=== PATIENT | male | born 1965 ===

== ENCOUNTER 2016-12-24 14:55 | Emergency (ER) | payer MEDICARE, BC ==
[2016-12-24 14:57] VITALS: BMI 32.1
[2016-12-24] MEDS ORDERED: Sodium Chloride 0.9% 1,000 ML IV STA ×4 (15:16→17:26)
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
[2016-12-24 15:31] LABS: BASO # 0.03 K/mm3 (0.0-2.0); BASO % 0.4 % (0.0-3.0); EOS # 0.2 (0.0-0.7); EOS % 1.9 % (1.5-5.0); GRAN # 5.22 (1.4-6.5); GRAN % 61.6 % (50.0-68.0); HEMOGLOBIN 15.1 gm/dL (14.0-18.0); LYMPH # 2.4 (1.2-3.4); LYMPH % 28.1 % (22.0-35.0); MEAN CELL VOLUME 84.9 fL (80.0-105.0); MEAN CORPUSCULAR HEMOGLOBIN 30.8 pg (25.0-35.0); MEAN CORPUSCULAR HGB CONC 36.2 g/dl (31.0-37.0); MEAN PLATELET VOLUME 9.8 fl (7.0-11.0); MONO # 0.7 (0.1-0.6); PLATELET COUNT 267 10^3/uL (120.0-450.0); RBC 4.91 10^6/uL (3.5-6.1); RED CELL DISTRIBUTION WIDTH 12.2 % (11.5-14.5); WHITE BLOOD COUNT 8.5 10^3/ul (4.5-11.0)
[2016-12-24 15:40] LABS: ALB/GLOB RATIO 1.1 (1.1-1.8); ALBUMIN 4.9 g/dL (3.0-4.8); CALCIUM 10.4 mg/dL (8.4-10.5)
--- NOTE | 2016-12-24 16:03 | RAD ---
HISTORY: Dizziness COMPARISON: 06/24/2016. FINDINGS: LUNGS: The lungs are well inflated and clear. PLEURA: No significant pleural effusion identified, no pneumothorax apparent. CARDIOVASCULAR: Normal. OSSEOUS STRUCTURES: No significant abnormalities. VISUALIZED UPPER ABDOMEN: Normal. OTHER FINDINGS: None. IMPRESSION: No active pulmonary disease.
[2016-12-24 17:15] LABS: VENOUS BLOOD GAS BASE EXCESS 1.1 mmol/L (0.0-2.0); VENOUS BLOOD GAS PO2 42 mm/Hg (30-55); VENOUS BLOOD PH 7.32 (7.32-7.43)
[2016-12-24 17:22] LABS: BLOOD UREA NITROGEN 16 mg/dL (7-21); CALCIUM 8.8 mg/dL (8.4-10.5); GFR AFRICAN-AMERICAN > 60; GFR NON-AFRICAN AMERICAN 58
[2016-12-24 18:55] VITALS: BP 126/76; PULSE 81; RESP 18; O2SAT 98
[2016-12-24 18:59] LABS: VENOUS BLOOD GAS BASE EXCESS -1.5 mmol/L (0.0-2.0); VENOUS BLOOD GAS PO2 54 mm/Hg (30-55); VENOUS BLOOD PH 7.33 (7.32-7.43)
[2016-12-24 19:16] LABS: BARBITURATES, UR NEGATIVE (NEGATIVE); BENZODIAZEPINES, UR NEGATIVE (NEGATIVE); OPIATES, UR NEGATIVE (NEGATIVE); PHENCYCLIDINE, UR NEGATIVE (NEGATIVE)
--- NOTE | 2016-12-25 16:33 | CARD ---
APPROVED REPORT EKG Measurement Heart [id number] <Conclusion> Sinus tachycardia Otherwise normal ECG
== END 2016-12-24 19:27 | disposition home or self-care (01) ==
LOC: ED 14:55
DX: E86.0 Dehydration (principal); E11.9 Type 2 diabetes mellitus without complications; I10 Essential (primary) hypertension
CPT/HCPCS: 71010; 80053; 82803; 82948; 85025; 93005; 96360; 99285; G0480; J7040

== ENCOUNTER 2017-09-23 06:15 | Day surgery (SDC) | payer MEDICARE, BC ==
[2017-09-15 08:58] VITALS: BMI 27.4
--- NOTE | 2017-09-23 04:12 | HP ---
DATE OF EXAM: 09/22/2017 REASON FOR ADMISSION: Left heart cath, possible angioplasty, preop evaluation for right hip surgery, abnormal stress test. BRIEF CLINICAL HISTORY: This is a 52-year-old male with past medical history of diabetes, hypertension, hyperlipidemia, bipolar disorder, needs right hip surgery and patient underwent preop clearance. Stress test is abnormal, so patient is scheduled for elective cardiac cath and possible angioplasty. PAST MEDICAL HISTORY: Significant for diabetes, hypertension, hyperlipidemia, obesity, arthritis of right hip requiring surgical intervention. SOCIAL HISTORY: Denies any history of alcohol abuse. CURRENT MEDICATIONS: Patient is taking Desyrel 150 mg p.o. daily, which is trazodone, Glucophage 500 twice a day, Risperdal 2 mg p.o. at bedtime, Lamictal 200 mg p.o. at bedtime, Lexapro 20 mg daily, Depakote ER 500 mg p.o. at bedtime, acetaminophen 3 tablets p.r.n. ALLERGIES: ALLERGY TO DIPHENHYDRAMINE AND IBUPROFEN. RECENT CARDIAC WORKUP: Patient had a stress test Lexiscan with preop evaluation dated 09/10/2017 that shows normal valve motion with ejection fraction 55%, probably abnormal myocardial perfusion study, partially reversible apical defect suggestive of ischemia. In comparison to the last study dated 09/08/2013, the changes appeared new, suspicious for ischemia. REVIEW OF SYSTEMS: As per HPI. PHYSICAL EXAMINATION: GENERAL: Height of the patient 5 feet 11 inches, weight of the patient 197 pounds, body mass index 27.5 kg/m2. VITAL SIGNS: Temperature is afebrile, heart rate 80, blood pressure 130/80. HEENT: PERRLA. Extraocular muscles intact. NECK: Supple. No carotid bruit or thyromegaly. CHEST: Clear to auscultation. HEART: S1, S2 regular. ABDOMEN: Soft. EXTREMITIES: Clubbing and cyanosis negative. LABORATORY DATA: Blood workup pending. IMPRESSION: Obesity, diabetes, hypertension, hyperlipidemia, arthritis of the right hip, bipolar disorder, abnormal stress test, preoperative evaluation for hip surgery. RECOMMENDATION: We will load with aspirin and Plavix. Follow up the blood workup; if the blood is in the normal limit, we will proceed for cardiac catheterization. Risks, benefits, and alternatives were discussed with the patient. The patient agreed, we will proceed for cardiac catheterization. Further recommendations after cardiac catheterization. Thank you Dr. Smith/Dr. Almanzar for providing us the opportunity in taking care of the patient, Pranav Goel. Thomas Leyva MD
[2017-09-23] MEDS ORDERED: Lidocaine 2% Inj (20ml) ONE (06:51)
[2017-09-23] MEDS ORDERED: Midazolam 2 MG/2 ML VIAL ONE ×2 (06:52→07:19)
[2017-09-23] MEDS ORDERED: Phenylephrine 10 mg/ml Inj ONE (06:52)
[2017-09-23] MEDS ORDERED: Iohexol 350mgl/ml 50 ML ONE (06:53)
[2017-09-23] MEDS ORDERED: Iodixanol 320 MG/ML 100 ML BOTTLE IV ONE (06:53)
[2017-09-23] MEDS ORDERED: Nitroglycerin 50mg in D5W 50 MG/250 ML BOTTLE IV ONE (06:53)
[2017-09-23] MEDS ORDERED: Iodixanol 320 MG/ML 200 ML BOTTLE IV ONE (06:53)
[2017-09-23] MEDS ORDERED: Verapamil 2 ML ONE (06:54)
[2017-09-23 07:10] LABS: BASO # 0.02 K/mm3 (0.0-2.0); BASO % 0.4 % (0.0-3.0); EOS # 0.3 (0.0-0.7); EOS % 5.6 % (1.5-5.0); GRAN # 2.36 (1.4-6.5); GRAN % 53.1 % (50.0-68.0); HEMOGLOBIN 12.7 g/dL (14.0-18.0); LYMPH # 1.4 (1.2-3.4); MEAN CELL VOLUME 86.7 fl (80.0-105.0); MEAN CORPUSCULAR HEMOGLOBIN 29.7 pg (25.0-35.0); MEAN CORPUSCULAR HGB CONC 34.2 g/dl (31.0-37.0); MEAN PLATELET VOLUME 9.6 fl (7.0-11.0); MONO # 0.4 (0.1-0.6); MONO % 9.9 % (1.0-6.0); RBC 4.28 10^6/uL (3.5-6.1); RED CELL DISTRIBUTION WIDTH 12.5 % (11.5-14.5); WHITE BLOOD COUNT 4.5 10^3/ul (4.5-11.0)
[2017-09-23 07:17] LABS: BLOOD UREA NITROGEN 24 mg/dL (7-21); CALCIUM 9.4 mg/dL (8.4-10.5); GFR AFRICAN-AMERICAN > 60; GFR NON-AFRICAN AMERICAN 53; HDL CHOLESTEROL 67 mg/dL (29-60)
[2017-09-23 07:19] LABS: INR 0.94 (0.93-1.08); PARTIAL THROMBOPLASTIN TIME 26.1 Seconds (25.1-36.5); PROTHROMBIN TIME 10.8 SECONDS (9.4-12.5)
[2017-09-23 07:27] LABS: LDL CHOLESTEROL 44 mg/dL (0-129)
[2017-09-23 08:15] VITALS: RESP 18; TEMP 98.4
[2017-09-23] MEDS ORDERED: Bacitracin 500 Units/gm Oint Foilpak UD TOP ONE (08:33)
[2017-09-23] MEDS ORDERED: Sodium Chloride 0.9% 1,000 ML IV SCH (08:45)
[2017-09-23] MEDS ORDERED: Bacitracin 500 Units/gm Oint Foilpak UD ONE (11:06)
--- NOTE | 2017-09-23 11:21 | CPOSTOP ---
DATE: 09/23/2017 DICTATING PHYSICIAN: Thomas Leyva MD. 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 TYPE OF ANESTHESIA: Moderate conscious sedation. Total dose given 2 mg of Versed, 100 of fentanyl periodically. Started 1 mg of Versed, 50 of fentanyl. PRE-PROCEDURE DIAGNOSES: Abnormal stress test, preoperative for hip surgery. PROCEDURE PERFORMED: Left heart catheterization. FINDINGS: Nonobstructive coronary artery disease, limited only to distal LAD diffuse disease, 55%. FINAL DIAGNOSES: Single-vessel disease, distal diffuse; nonobstructive coronary artery disease. POST PROCEDURE CONDITION: Stable. VASCULAR ACCESS SITE: Left radial. CLOSURE DEVICE: TR Band. TOTAL RADIATION DOSE: 6388.4 milligray unit. TOTAL FLUORO TIME: 3.3 minutes. Thomas Leyva MD
[2017-09-23] MEDS ORDERED: Insulin Reg-LOW-Coverage SC SCH (11:30)
[2017-09-23 11:33] VITALS: BP 118/74; PULSE 82; O2SAT 95
--- NOTE | 2017-09-23 14:34 | CARD ---
APPROVED REPORT EKG Measurement Heart [id number] <Conclusion> Normal sinus rhythm Normal ECG
--- NOTE | 2017-09-23 17:05 | CARD ---
APPROVED REPORT Procedure(s) performed: Complete Heart Catheterization HISTORY The patient is a 52 year-old Male with a history of : most recent EF: 55%. (EF Method: RADIONUCLIDE), diabetes mellitus with oral treatment , tobacco history() : The patient is a current smoker , previous PCI (The PCI date was ), hypertension , dyslipidemia , pre - op for hip surgery abnormal stress test, apical and inferior Ischemia.. INDICATION The indication(s) include : positive stress test. CASE TECHNIQUE The patient was brought electively to the Cardiac Catheterization Laboratory in a fasting state and was prepped and draped in a sterile manner. The left wrist was infiltrated with 2% Lidocaine subcutaneous anesthesia. A 6FR GLIDESHEATH ACCESS KIT sheath was inserted into the left radial artery without difficulty. Coronary angiography was performed using coronary diagnostic catheters. The left coronary system was accessed and visualized with a Diagnostic,6F JL4 CATH DXT 100 CM catheter. The right coronary system was accessed and visualized with a Diagnostic ,6F JR 4 CATH DXT 100 CM catheter. The left ventricle was accessed and visualized with a 6F JR 4 CATH DXT 100 CM catheter. Left ventricular/Aortic Valve gradient assessed on pullback. Left ventriculogram was performed in ESTRADA projection. Closure device was deployed with a Fr TR Band (Large) without any complications. The patient tolerated the procedure well and there were no complications associated with the procedure. Vessel Analysis The patient's coronary anatomy is right dominant. The left main coronary artery is a large size vessel with intimal irregularities and without significant stenosis. The left main bifurcates to the left anterior descending and circumflex. The left anterior descending artery is a medium size vessel with diffuse calcification noted throughout this vessel and without significant stenosis. There is a 55% stenosis in the very distal segment. near apex and is diffusely diseased, but no focal flow limiting stenosis. The first diagonal branch is a medium size vessel with diffuse calcification noted throughout this vessel and without significant stenosis. The second diagonal branch is a small size vessel with diffuse calcification noted throughout this vessel and without significant stenosis. The third diagonal branch is a small size vessel with diffuse calcification noted throughout this vessel and without significant stenosis. The circumflex artery is a medium size vessel with diffuse calcification noted throughout this vessel and without significant stenosis. The first obtuse marginal branch is a medium size vessel with intimal irregularities and without significant stenosis. The second obtuse marginal branch is a medium size vessel with intimal irregularities and without significant stenosis. The right coronary artery is a large size vessel with diffuse calcification noted throughout this vessel and without significant stenosis. The right posterior descending artery is a large size vessel with intimal irregularities and without significant stenosis. The right posterolateral branch is a medium size vessel with intimal irregularities and without significant stenosis. Left Ventricle The left ventricle is normal in size with normal contractility. There was no cardiomyopathy. The left ventricular ejection fraction is estimated to be 55-60%. The left ventricular end diastolic pressure is 6-8 mmHg. There was no gradient across the aortic valve upon pullback. Conclusion Non Obstructive CAD limited to very distal LAD 55% diffusely diseased, non flow limiting non focal stenosis. Preserved Lv Fx, EF-55-60%, EDP-6-8 mm of Hg. Recommendations Aggressive Medical TherapyCardiac Risk Reduction Program Weight Loss Reduction Program Pt. is cleared to go for hip Surgery, from cardilogy point of view. CC; DRs. Smith/ Jenelle.
== END 2017-09-23 12:02 | disposition home or self-care (01) ==
LOC: CATH 06:15
PROVIDERS: ATTEND Internal Medicine Cardiovascular Disease
DX: I25.10 Atherosclerotic heart disease of native coronary artery without angina pectoris (principal); E11.9 Type 2 diabetes mellitus without complications; I10 Essential (primary) hypertension; E78.5 Hyperlipidemia, unspecified; F31.9 Bipolar disorder, unspecified; M16.11 Unilateral primary osteoarthritis, right hip; E66.9 Obesity, unspecified; Z68.27 Body mass index [BMI] 27.0-27.9, adult; R94.39 Abnormal result of other cardiovascular function study; F17.200 Nicotine dependence, unspecified, uncomplicated; Z01.818 Encounter for other preprocedural examination; Z98.61 Coronary angioplasty status
CPT/HCPCS: 36415; 80048; 80061; 85025; 85610; 85730; 86850; 86900; 93005; 93458; 99152; C1769; J1644 ×2; J2250; J3010; J7040; Q9966; Q9967

== ENCOUNTER 2018-03-06 14:21 | Emergency (ER) | payer MEDICARE, BC ==
[2018-03-06 14:21] VITALS: BMI 27.4
[2018-03-06 14:37] VITALS: TEMP 98.5
--- NOTE | 2018-03-06 15:08 | ED PDOC ---
Arrival/HPI - General Chief Complaint: Dizziness/Lightheaded Time Seen by Provider: 03/06/18 14:22 Historian: Patient - History of Present Illness Narrative History of Present Illness (Text): 03/06/18 14:59 53yo male with pmhx of NIDDM who present to ED for evaluation of one year history of lightheadedness. States he has been seen by a Neurologist, Cardiology Nurse, and ENT and all test was negative. States he had a syncopal epis ode 2months ago, but didn't see a doctor. He states he usually gets the lightheadedness when he stands up in the morning. States he finally decided that enough is enough and decided to come to ED for evaluation. States he did not get lightheaded today. Denies chest pain, SOB, diaphoresis, focal weakness, headache, visual changes, recent URI, tinnitus. Past Medical History - Provider Review Nursing Documentation Reviewed: Yes - Infectious Disease Hx of Infectious Diseases: None - Tetanus Immunization Tetanus Immunization: Unknown - Cardiac Hx Cardiac Disorders: No - Pulmonary Hx Respiratory Disorders: No - Neurological Hx Neurological Disorder: No - HEENT Hx HEENT Disorder: No - Renal Hx Renal Disorder: Yes Hx Kidney Stones: Yes - Endocrine/Metabolic Hx Endocrine Disorders: Yes Hx Diabetes Mellitus Type 2: Yes - Hematological/Oncological Hx Blood Disorders: No - Integumentary Hx Dermatological Disorder: No - Musculoskeletal/Rheumatological Hx Musculoskeletal Disorders: Yes Hx Arthritis: Yes (HIP) - Gastrointestinal Hx Gastrointestinal Disorders: Yes Hx Diverticulitis: Yes Hx Gall Bladder Disease: Yes - Genitourinary/Gynecological Hx Genitourinary Disorders: No - Psychiatric Hx Psychophysiologic Disorder: Yes Hx Anxiety: Yes Hx Bipolar Disorder: Yes Hx Depression: Yes Hx Schizophrenia: Yes Hx Substance Use: Yes (COCAINE) - Surgical History Other/Comment: KIDNEY STONES REMOVED - Anesthesia Hx Anesthesia Reactions: No Hx Malignant Hyperthermia: No - Suicidal Assessment Feels Threatened In Home Enviroment: No Family/Social History - Physician Review Nursing Documentation Reviewed: Yes Family/Social History: Unknown Family HX Smoking Status: Heavy Smoker > 10 Cigarettes Daily Hx Alcohol Use: Yes Frequency of alcohol use: Daily Hx Substance Use: Yes (COCAINE) Substance used: cocaine Hx Substance Use Treatment: No Allergies/Home Meds Allergies/Adverse Reactions: Allergies diphenhydramine [From Benadryl] Allergy (Severe, Verified 03/06/18 14:23) SWELLING ibuprofen Allergy (Severe, Verified 03/06/18 14:23) SWELLING Home Medications: Home Meds Medication Instructions Recorded Confirmed Escitalopram [Lexapro] 20 mg PO HS 09/07/12 03/06/18 Lamotrigine [Lamictal] 200 mg PO HS 09/07/12 03/06/18 Risperidone [Risperdal] 2 mg PO HS 06/24/16 03/06/18 traZODone [Desyrel] 150 mg PO HS 06/24/16 03/06/18 Acetaminophen [Tylenol Extra 3 tab PO PRN PRN 07/22/17 03/06/18 Strength] Divalproex [Depakote ER] 500 mg PO HS 07/22/17 03/06/18 metFORMIN [glucOPHAGE] 500 mg PO BID 09/15/17 03/06/18 Review of Systems - Physician Review All systems were reviewed & negative as marked: Yes - Review of Systems Constitutional: Normal Eyes: Normal ENT: Normal Respiratory: Normal Cardiovascular: Normal Gastrointestinal: Normal Genitourinary Male: Normal Musculoskeletal: Normal Skin: Normal Neurological: Dizziness. absent: Headache, Focal Weakness, Gait Changes, Speech Changes, Facial Droop Endocrine: Normal Hemo/Lymphatic: Normal Psychiatric: Normal Physical Exam Vital Signs Reviewed: Yes Vital Signs Temp Pulse Resp BP Pulse Ox 03/06/18 14:24 98.5 F 81 16 105/73 96 Temperature: Afebrile Blood Pressure: Normal Pulse: Regular Respiratory Rate: Normal Appearance: Positive for: Well-Appearing, Non-Toxic, Comfortable Pain Distress: None Mental Status: Positive for: Alert and Oriented X 3 - Systems Exam Head: Present: Atraumatic, Normocephalic Pupils: Present: PERRL Extroacular Muscles: Present: EOMI Conjunctiva: Present: Normal Mouth: Present: Moist Mucous Membranes Neck: Present: Normal Range of Motion Respiratory/Chest: Present: Clear to Auscultation, Good Air Exchange. No: Respiratory Distress, Accessory Muscle Use Cardiovascular: Present: Regular Rate and Rhythm, Normal S1, S2. No: Murmurs Abdomen: No: Tenderness, Distention, Peritoneal Signs Back: Present: Normal Inspection Upper Extremity: Present: Normal Inspection. No: Cyanosis, Edema Lower Extremity: Present: Normal Inspection. No: Edema Neurological: Present: GCS=15, CN II-XII Intact, Speech Normal, Motor Func Grossly Intact, Normal Sensory Function, Normal Cerebellar Funct, Norm Deep Tendon Reflexes, Gait Normal, Memory Normal, Normal 2Pt Descrimination, Other (No focal neurological deficit) Skin: Present: Warm, Dry, Normal Color. No: Rashes Psychiatric: Present: Alert, Oriented x 3, Normal Insight, Normal Concentration Medical Decision Making ED Course and Treatment: 03/06/18 16:47 53yo male who present with complaint of intermittent lightheadedness for a year. EKG NSR @ 75bpm. Normal interval. Normal rate. NSTEMI Head CT was not done, hence they is no indication for head CT. Pt is neurologically intact and have had an extensive work up for same symptoms. Labs ordered reviewed and unremarkable. His repeat FS in ED without meds given was 267. All result was DW the pt. He was neurologically intact and had a stable gait in ED. He was DC home to f/u with his PMD and Neuro. Disposition/Present on Arrival - Present on Arrival Any Indicators Present on Arrival: No History of DVT/PE: No History of Uncontrolled Diabetes: No Urinary Catheter: No History of Decub. Ulcer: No History Surgical Site Infection Following: None - Disposition Have Diagnosis and Disposition been Completed?: Yes Diagnosis: Dizziness Disposition: HOME/ ROUTINE Disposition Time: 16:50 Patient Plan: Discharge Condition: STABLE Discharge Instructions (ExitCare): Dizziness, Nonvertigo, (DC) Additional Instructions: Follow up with your Doctor/Neurologist return to ED for any new or worsening symptoms Referrals: Dani Smith MD [Family Provider] - Follow up with primary Emory Damian MD [Staff Provider] - Follow up with primary Forms: [email or web address] (Telugu)
[2018-03-06 15:28] LABS: BASO # 0.01 K/mm3 (0.0-2.0); BASO % 0.2 % (0.0-3.0); EOS # 0.1 (0.0-0.7); EOS % 1.8 % (1.5-5.0); GRAN # 3.49 (1.4-6.5); GRAN % 69.5 % (50.0-68.0); HEMOGLOBIN 12.1 g/dL (14.0-18.0); LYMPH # 1.1 (1.2-3.4); LYMPH % 21.7 % (22.0-35.0); MEAN CELL VOLUME 87.1 fl (80.0-105.0); MEAN CORPUSCULAR HEMOGLOBIN 30.1 pg (25.0-35.0); MEAN CORPUSCULAR HGB CONC 34.6 g/dl (31.0-37.0); MEAN PLATELET VOLUME 9.3 fl (7.0-11.0); MONO # 0.3 (0.1-0.6); MONO % 6.8 % (1.0-6.0); RBC 4.02 10^6/uL (3.5-6.1); RED CELL DISTRIBUTION WIDTH 12.1 % (11.5-14.5)
[2018-03-06 15:32] LABS: INR 0.97; PARTIAL THROMBOPLASTIN TIME 25.1 Seconds (25.1-36.5)
[2018-03-06 15:43] LABS: ALB/GLOB RATIO 1.2 (1.1-1.8); ALT/SGPT 20 U/L (7-56); AST/SGOT 32 U/L (17-59); BLOOD UREA NITROGEN 25 mg/dL (7-21); CALCIUM 9.3 mg/dL (8.4-10.5); GFR NON-AFRICAN AMERICAN 57
[2018-03-06] MEDS ORDERED: Insulin Regular 1 UNITS/0.01 ML ML IVP STA (15:44)
[2018-03-06] MEDS ORDERED: Sodium Chloride 0.9% 1,000 ML IV STA (15:44)
[2018-03-06 15:45] LABS: TROPONIN I < 0.01 ng/mL
[2018-03-06 15:50] LABS: FREE T4 0.89 ng/dL (0.78-2.19)
[2018-03-06 16:08] LABS: URINE BILIRUBIN NEGATIVE (NEGATIVE); URINE BLOOD NEGATIVE (NEGATIVE); URINE GLUCOSE (UA) >=1000 mg/dL (NEGATIVE); URINE LEUKOCYTE ESTERASE NEGATIVE Leu/uL (NEGATIVE); URINE PROTEIN TRACE mg/dL (<30 mg/dL); URINE UROBILINOGEN 0.2 E.U./dL (<1 E.U./dL)
[2018-03-06 16:09] LABS: URINE APPEARANCE CLEAR (CLEAR); URINE COLOR YELLOW (YELLOW)
[2018-03-06 16:39] LABS: URINE BACTERIA FEW (NEG); URINE RBC NEGATIVE /hpf (0-2)
[2018-03-06 16:45] VITALS: O2SAT 97
[2018-03-06 16:59] VITALS: BP 115/80; PULSE 72; RESP 18
--- NOTE | 2018-03-07 09:53 | CARD ---
APPROVED REPORT Date of service: 03/06/2018 EKG Measurement Heart [id number] <Conclusion> Normal sinus rhythm Normal ECG No change
== END 2018-03-06 16:58 | disposition home or self-care (01) ==
LOC: ED 14:21
DX: R42 Dizziness and giddiness (principal); E11.9 Type 2 diabetes mellitus without complications
CPT/HCPCS: 80053; 81001; 82550; 83615; 83735; 84439; 84443; 84484; 85025; 85610; 85730; 93005; 96360; 99285; J7030

== ENCOUNTER 2018-05-03 20:14 | Emergency (ER) | payer MEDICARE, BC ==
[2018-05-03 20:15] VITALS: BMI 27.4
[2018-05-03 21:36] VITALS: RESP 18; TEMP 98.1
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
[2018-05-04] MEDS ORDERED: Tmp-Smz 800 mg-160 mg DS Tab PO STA (00:05)
[2018-05-04 00:33] VITALS: BP 147/82; PULSE 68; O2SAT 99
--- NOTE | 2018-05-04 09:41 | RAD ---
Date of service: 05/03/2018 PROCEDURE: Left Foot great toe radiographs. HISTORY: toe injury COMPARISON: None. FINDINGS: BONES: There is a transverse nondisplaced fracture of the 1st proximal phalanx and a longitudinal nondisplaced fracture of the 1st distal phalanx seen only on the lateral view. JOINTS: Normal. SOFT TISSUES: Normal. OTHER FINDINGS: None. IMPRESSION: There is a transverse nondisplaced fracture of the 1st proximal phalanx and a longitudinal nondisplaced fracture of the 1st distal phalanx seen only on the lateral view.
== END 2018-05-04 00:32 | disposition home or self-care (01) ==
LOC: ED 20:14
DX: S92.912A Unspecified fracture of left toe(s), initial encounter for closed fracture (principal); X58.XXXA Exposure to other specified factors, initial encounter; Y92.9 Unspecified place or not applicable

== ENCOUNTER 2018-07-25 01:37 | Inpatient (IN) | payer MEDICARE, BC | END 2018-08-02 19:02 | disposition skilled nursing facility (03) | DRG 871 | LOC: 3RSO 08-01 18:43 → ED 01:37 → ERH 04:57 → 3RSO 15:02 | PROC: 5A09457 Assistance with Respiratory Ventilation, 24-96 Consecutive Hours, Continuous Positive Airway Pressure (ICD-10-PCS; principal; 2018-08-01 12:40) | PROC: B246ZZ4 Ultrasonography of Right and Left Heart, Transesophageal (ICD-10-PCS; 2018-08-01 12:40) | PROC: 05HY33Z Insertion of Infusion Device into Upper Vein, Percutaneous Approach (ICD-10-PCS; 2018-08-01 12:40) | PROC: B54NZZA Ultrasonography of Left Upper Extremity Veins, Guidance (ICD-10-PCS; 2018-08-01 12:40) | DX: A41.01 Sepsis due to Methicillin susceptible Staphylococcus aureus (principal); J18.9 Pneumonia, unspecified organism; F14.20 Cocaine dependence, uncomplicated; J44.0 Chronic obstructive pulmonary disease with (acute) lower respiratory infection; E11.9 Type 2 diabetes mellitus without complications; R53.1 Weakness; R55 Syncope and collapse; W19.XXXA Unspecified fall, initial encounter; M16.11 Unilateral primary osteoarthritis, right hip; M19.90 Unspecified osteoarthritis, unspecified site; F10.10 Alcohol abuse, uncomplicated; F31.9 Bipolar disorder, unspecified; F17.210 Nicotine dependence, cigarettes, uncomplicated; Z79.84 Long term (current) use of oral hypoglycemic drugs; Z79.899 Other long term (current) drug therapy; I25.10 Atherosclerotic heart disease of native coronary artery without angina pectoris; A39.4 Meningococcemia, unspecified; Z87.442 Personal history of urinary calculi; E78.5 Hyperlipidemia, unspecified; F20.9 Schizophrenia, unspecified; G47.33 Obstructive sleep apnea (adult) (pediatric); M46.90 Unspecified inflammatory spondylopathy, site unspecified; M47.9 Spondylosis, unspecified; Z79.4 Long term (current) use of insulin ==

== ENCOUNTER 2018-08-29 09:47 | Inpatient (IN) | payer MEDICARE, BC ==
[2018-08-29 09:49] VITALS: BMI 30.9
--- NOTE | 2018-08-29 10:07 | ED PDOC ---
Arrival/HPI - General Chief Complaint: GI Problem Time Seen by Provider: 08/29/18 09:49 Historian: Patient - History of Present Illness Narrative History of Present Illness (Text): 08/29/18 10:28 53 y/o male with PMH of DM, bipolar disorder, CAD presents to the ED c/o lightheadedness x 2 days. Associated nausea and brown, watery, non-bloody diarrhea 4-5 times daily starting yesterday. Lightheadedness is worse with changes in position, states when he stands up too quickly he "sees stars". Last cocaine use 5 days ago, none today. Compliant with his medication, took them today. No recent travel, changes in diet, or antibiotic use. Denies fever, chills, chest pain, SOB, headache, vomiting, palpitations, abdominal pain, urina ry symptoms, neck pain/stiffness, numbness, weakness, paresthesias, or any other associated symptoms. Past Medical History - Provider Review Nursing Documentation Reviewed: Yes - Infectious Disease Hx of Infectious Diseases: None - Tetanus Immunization Tetanus Immunization: Unknown - Cardiac Hx Pacemaker: No - Pulmonary Hx Respiratory Disorders: Yes (SMOKES 1 CIGAR/WEEK) - Neurological Hx Neurological Disorder: Yes Hx Dizziness: Yes (SYNCOPE) - HEENT Hx HEENT Disorder: No - Renal Hx Renal Disorder: Yes Hx Kidney Stones: Yes - Endocrine/Metabolic Hx Diabetes Mellitus Type 2: Yes - Hematological/Oncological Hx Cancer: No - Integumentary Hx Dermatological Disorder: Yes (TATTOOS) - Musculoskeletal/Rheumatological Hx Musculoskeletal Disorders: Yes (R SHOULDER SX) Hx Arthritis: Yes Hx Falls: Yes (2-18-19) Hx Unsteady Gait: Yes - Gastrointestinal Hx Gastrointestinal Disorders: Yes Hx Diverticulitis: Yes Hx Gall Bladder Disease: Yes - Genitourinary/Gynecological Hx Genitourinary Disorders: No - Psychiatric Hx Psychophysiologic Disorder: Yes Hx Anxiety: Yes Hx Bipolar Disorder: Yes Hx Depression: Yes Hx Schizophrenia: Yes Hx Substance Use: Yes (LAST USED 1 GM.USING FOR 35 YRS.) - Surgical History Hx Mastectomy: No - Anesthesia Hx Anesthesia Reactions: No Hx Malignant Hyperthermia: No - Suicidal Assessment Feels Threatened In Home Enviroment: No Family/Social History - Physician Review Nursing Documentation Reviewed: Yes Family/Social History: No Known Family HX Smoking Status: Current Some Days Smoker Hx Alcohol Use: Yes Hx Substance Use: Yes (LAST USED 1 GM.USING FOR 35 YRS.) Substance used: cocaine Hx Substance Use Treatment: No Allergies/Home Meds Allergies/Adverse Reactions: Allergies diphenhydramine [From Benadryl] Allergy (Severe, Verified 08/29/18 10:46) SWELLING ibuprofen Allergy (Severe, Verified 08/29/18 10:46) SWELLING Home Medications: Home Meds Medication Instructions Recorded Confirmed traZODone [Desyrel] 150 mg PO HS 06/24/16 08/29/18 Divalproex [Depakote ER] 500 mg PO HS 07/22/17 08/29/18 Lysine HCl [l-Lysine] 1,000 mg PO DAILY 08/29/18 08/29/18 Review of Systems - Review of Systems Constitutional: Fatigue. absent: Fevers Eyes: Normal. absent: Vision Changes ENT: Normal. absent: Sore Throat, Sinus Congestion Respiratory: Normal. absent: SOB, Cough Cardiovascular: Normal. absent: Chest Pain, Palpitations, Syncope Gastrointestinal: Diarrhea, Nausea. absent: Abdominal Pain, Vomiting Genitourinary Male: Normal. absent: Dysuria, Frequency Musculoskeletal: Normal. absent: Back Pain, Neck Pain Skin: Normal. absent: Rash Neurological: Other (Lightheadedness). absent: Headache, Dizziness Endocrine: Normal. absent: Diaphoresis Hemo/Lymphatic: Normal Psychiatric: Normal Physical Exam Vital Signs Reviewed: Yes Temperature: Afebrile Blood Pressure: Hypotensive Pulse: Regular Respiratory Rate: Normal Appearance: Positive for: Well-Appearing, Non-Toxic, Comfortable Pain Distress: None Mental Status: Positive for: Alert and Oriented X 3 - Systems Exam Head: Present: Atraumatic, Normocephalic Pupils: Present: PERRL Extroacular Muscles: Present: EOMI Conjunctiva: Present: Normal Mouth: Present: Moist Mucous Membranes Neck: Present: Normal Range of Motion. No: Meningeal Signs Respiratory/Chest: Present: Clear to Auscultation, Good Air Exchange. No: Respiratory Distress, Accessory Muscle Use Cardiovascular: Present: Regular Rate and Rhythm, Normal S1, S2, Peripheal Pulses Present Abdomen: Present: Tenderness (mild LLQ), Normal Bowel Sounds. No: Distention, Peritoneal Signs Back: Present: Normal Inspection. No: CVA Tenderness, Midline Tenderness, Paraspinal Tenderness Upper Extremity: Present: Normal Inspection, Normal ROM, NORMAL PULSES, Neurovascularly Intact, Capillary Refill < 2s. No: Cyanosis, Edema, Temperature Abnormalties Lower Extremity: Present: Normal Inspection, NORMAL PULSES, Normal ROM, Neurovascularly Intact, Capillary Refill < 2 s. No: Edema, Temperature Abnormalties Neurological: Present: GCS=15, CN II-XII Intact, Speech Normal, Motor Func Grossly Intact, Normal Sensory Function, Gait Normal Skin: Present: Warm, Dry, Normal Color. No: Rashes Psychiatric: Present: Alert, Oriented x 3, Normal Insight, Normal Concentration, Normal Affect, Normal Mood Medical Decision Making ED Course and Treatment: 08/29/18 10:07 Initial Plan: * CBC, CMP * Coags * Lipase * TSH * Troponin * EKG * CT Abd/Pelvis with IV contrast * Orthostatics * IVF EKG NSR at 94, no ischemic changes 11:04 Bloodwork reviewed, unremarkable UA shows no UTI Orthostatic vital signs positive LYING - 116/70 HR 86 SITTING - 96/53 HR 96 STANDING - 82/45 HR 102 11:[address] negative for acute pathology Abdominal CT significant for mild colitis 12:[address] Smith, who accepted patient for inpatient observation to [facility] with diagnoses of orthostatic hypotension, colitis, and dehydration. Requests ID and GI consult. Pt updated with changes in disposition. Resting comfortably in stretcher with stable vital signs at this time. 13:20 Pt evaluated at bedside by Dr. Smith. Requests ID consult, antibiotics, and blood cultures to be cancelled. Asks for sliding scale insulin. - Lab Interpretations Lab Results: 08/29/18 10:05 08/29/18 10:05 Lab Results 08/29/18 10:05: Free T4 1.07, TSH 3rd Generation Pending 08/29/18 10:05: Sodium 139, Potassium 4.3, Chloride 105, Carbon Dioxide 23, Anion Gap 15, BUN 20, Creatinine 1.2, Est GFR ( Amer) > 60, Est GFR (Non-Af Amer) > 60, Random Glucose 197 H, Calcium 9.5, Total Bilirubin 0.4, AST 21, ALT < 6 L, Alkaline Phosphatase 63, Lactate Dehydrogenase 393, Total Crea isidra Kinase 94, Troponin I < 0.01, Total Protein 8.5 H, Albumin 4.2, Globulin 4.3, Albumin/Globulin Ratio 1.0 L, Lipase 296 03/25/19 10:05: Urine Color Yellow, Urine Appearance Clear, Urine pH 6.0, Ur Specific [place] 1.020, Urine Protein Negative, Urine Glucose (UA) Negative, Urine Ketones Negative, Urine Blood Negative, Urine Nitrate Negative, Urine Bilirubin Negative, Urine Urobilinogen 0.2, Ur Leukocyte Esterase Trace H, Urine RBC 0 - 2, Urine WBC 2 - 5, Ur Epithelial Cells None, Urine Bacteria Small 08/29/18 10:05: PT 12.0, INR 1.06, APTT 31.7 08/29/18 10:05: WBC 6.8 D, RBC 4.09, Hgb 12.0 L, Hct 36.1 L, MCV 88.3, MCH 29.3, MCHC 33.2, RDW 13.9, Plt Count 227, MPV 9.5, Neut % (Auto) 71.4 H, Lymph % (Auto) 20.1 L, Sharp % (Auto) 5.0, Eos % (Auto) 3.4, Baso % (Auto) 0.1, Lymph # (Auto) 1.4, Sharp # (Auto) 0.3, Eos # (Auto) 0.2, Baso # (Auto) 0.01, Absolute Neuts (auto) 4.88 I have reviewed the lab results: Yes - RAD Interpretation Narrative RAD Interpretations (Text): 08/29/18 11:[address]: FINDINGS: HEMORRHAGE: No intracranial hemorrhage. BRAIN: No mass effect or edema. Cortical and cerebellar atrophy, periventricular small vessel disease. VENTRICLES: Unremarkable. No hydrocephalus. CALVARIUM: Unremarkable. PARANASAL SINUSES: Unremarkable as visualized. No significant inflammatory changes. MASTOID AIR CELLS: Unremarkable as visualized. No inflammatory changes. OTHER FINDINGS: None. IMPRESSION: No acute or significant findings related to/ accounting for the clinical presentation. Additional benign and/or incidental findings described above. No significant interval change compared to the prior examination(s). CT Abd/Pelvis with IV contrast: FINDINGS: LOWER THORAX: Improved aeration at the lung bases compared to prior CT thorax 08/02/2018. LIVER: Unremarkable. No gross lesion or ductal dilatation. GALLBLADDER AND BILE DUCTS: Status post cholecystectomy. No abnormality is seen in the gallbladder fossa. PANCREAS: Unremarkable. No gross lesion or ductal dilatation. SPLEEN: Unremarkable. ADRENALS: Unremarkable. No mass. KIDNEYS AND URETERS: Unremarkable. No hydronephrosis. No solid mass. VASCULATURE: Unremarkable. No aortic aneurysm. No atherosclerotic calcification or mural plaque present. BOWEL: Thickening of the wall of descending colon and sigmoid proximal to the suture line. Findings consistent with left daryl colitis, mild Postoperative changes including resection of portions of the sigmoid colon. No abnormalities at the anastomotic suture line. APPENDIX: A normal appendix is visualized in it's entirety. PERITONEUM: Unremarkable. No free fluid. No free air. LYMPH NODES: Unremarkable. No enlarged lymph nodes. BLADDER: Unremarkable. REPRODUCTIVE: Unremarkable. BONES: No acute fracture. Severe degenerative changes right hip. OTHER FINDINGS: None. IMPRESSION: Mild colitis, limited to the descending colon and adjacent sigmoid colon. Additional benign and/or incidental findings described above. 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 - EKG Interpretation EKG Interpretation (Text): 08/29/18 10:08 Rate 94, NSR, Normal Intervals, No STEMI or other signs of acute ischemia Interpreted by ED Physician: Yes Type: 12 lead EKG Comparison: Com.w/previous EKG Disposition/Present on Arrival - Present on Arrival Any Indicators Present on Arrival: No History of DVT/PE: No History of Uncontrolled Diabetes: No Urinary Catheter: No History Surgical Site Infection Following: None - Disposition Have Diagnosis and Disposition been Completed?: Yes Diagnosis: Orthostatic hypotension, Colitis Disposition: HOSPITALIZED Disposition Time: 12:30 Patient Plan: Discharge Condition: STABLE
[2018-08-29] MEDS ORDERED: Sodium Chloride 0.9% 1,000 ML IV STA (10:18)
[2018-08-29 10:37] LABS: BASO # 0.01 K/mm3 (0.0-2.0); BASO % 0.1 % (0.0-3.0); EOS # 0.2 (0.0-0.7); EOS % 3.4 % (1.5-5.0); LYMPH # 1.4 (1.2-3.4); LYMPH % 20.1 % (22.0-35.0); MEAN CELL VOLUME 88.3 fl (80.0-105.0); MEAN CORPUSCULAR HEMOGLOBIN 29.3 pg (25.0-35.0); MEAN CORPUSCULAR HGB CONC 33.2 g/dl (31.0-37.0); MEAN PLATELET VOLUME 9.5 fl (7.0-11.0); MONO # 0.3 (0.1-0.6); RBC 4.09 10^6/uL (3.5-6.1); RED CELL DISTRIBUTION WIDTH 13.9 % (11.5-14.5); WHITE BLOOD COUNT 6.8 10^3/uL (4.5-11.0)
[2018-08-29 10:38] LABS: URINE BILIRUBIN NEGATIVE (NEGATIVE); URINE BLOOD NEGATIVE (NEGATIVE); URINE GLUCOSE (UA) NEGATIVE (NEGATIVE); URINE LEUKOCYTE ESTERASE TRACE Leu/uL (NEGATIVE); URINE PROTEIN NEGATIVE mg/dL (<30 mg/dL); URINE UROBILINOGEN 0.2 E.U./dL (<1 E.U./dL)
[2018-08-29 10:45] LABS: INR 1.06; PARTIAL THROMBOPLASTIN TIME 31.7 Seconds (26.9-38.3); URINE APPEARANCE CLEAR (CLEAR); URINE COLOR YELLOW (YELLOW)
[2018-08-29 10:49] LABS: ALBUMIN 4.2 g/dL (3.0-4.8); AST/SGOT 21 U/L (17-59); BLOOD UREA NITROGEN 20 mg/dL (7-21); CALCIUM 9.5 mg/dL (8.4-10.5); GFR NON-AFRICAN AMERICAN > 60; LIPASE 296 U/L (23-300)
[2018-08-29 10:50] LABS: ALT/SGPT < 6 U/L (7-56)
[2018-08-29 10:54] LABS: URINE RBC 0 - 2 /hpf (0-2)
[2018-08-29 10:56] LABS: URINE BACTERIA SMALL /hpf
[2018-08-29 11:00] LABS: TROPONIN I < 0.01 ng/mL
[2018-08-29 11:06] LABS: FREE T4 1.07 ng/dL (0.78-2.19)
--- NOTE | 2018-08-29 11:45 | CT ---
Date of service: 08/29/2018 PROCEDURE: CT HEAD WITHOUT CONTRAST. HISTORY: headache COMPARISON: 06/24/2016, 04/07/2017, 07/28/2017, 07/25/2018. Serial CT scans of the head. TECHNIQUE: Axial computed tomography images were obtained through the head/brain without intravenous contrast. Supplemental Coronal and Sagittal projections created and reviewed. Radiation dose: Total exam DLP = 969.02 mGy-cm. This CT exam was performed using one or more of the following dose reduction techniques: Automated exposure control, adjustment of the mA and/or kV according to patient size, and/or use of iterative reconstruction technique. FINDINGS: HEMORRHAGE: No intracranial hemorrhage. BRAIN: No mass effect or edema. Cortical and cerebellar atrophy, periventricular small vessel disease. VENTRICLES: Unremarkable. No hydrocephalus. CALVARIUM: Unremarkable. PARANASAL SINUSES: Unremarkable as visualized. No significant inflammatory changes. MASTOID AIR CELLS: Unremarkable as visualized. No inflammatory changes. OTHER FINDINGS: None. IMPRESSION: No acute or significant findings related to/ accounting for the clinical presentation. Additional benign and/or incidental findings described above. No significant interval change compared to the prior examination(s).
--- NOTE | 2018-08-29 12:03 | CARD ---
APPROVED REPORT Date of service: 08/29/2018 EKG Measurement Heart [id number] <Conclusion> Normal sinus rhythm Normal ECG
--- NOTE | 2018-08-29 12:24 | CT ---
Date of service: 08/29/2018 PROCEDURE: CT Abdomen and Pelvis with contrast HISTORY: LLQ tender, diarrhea. r/o diverticulitis COMPARISON: None. TECHNIQUE: Intravenous contrast dose: 150 cc Omnipaque 350. Radiation dose: Total exam DLP = 1057.44 mGy-cm. This CT exam was performed using one or more of the following dose reduction techniques: Automated exposure control, adjustment of the mA and/or kV according to patient size, and/or use of iterative reconstruction technique. FINDINGS: LOWER THORAX: Improved aeration at the lung bases compared to prior CT thorax 08/02/2018. LIVER: Unremarkable. No gross lesion or ductal dilatation. GALLBLADDER AND BILE DUCTS: Status post cholecystectomy. No abnormality is seen in the gallbladder fossa. PANCREAS: Unremarkable. No gross lesion or ductal dilatation. SPLEEN: Unremarkable. ADRENALS: Unremarkable. No mass. KIDNEYS AND URETERS: Unremarkable. No hydronephrosis. No solid mass. VASCULATURE: Unremarkable. No aortic aneurysm. No atherosclerotic calcification or mural plaque present. BOWEL: Thickening of the wall of descending colon and sigmoid proximal to the suture line. Findings consistent with left daryl colitis, mild Postoperative changes including resection of portions of the sigmoid colon. No abnormalities at the anastomotic suture line. APPENDIX: A normal appendix is visualized in it's entirety. PERITONEUM: Unremarkable. No free fluid. No free air. LYMPH NODES: Unremarkable. No enlarged lymph nodes. BLADDER: Unremarkable. REPRODUCTIVE: Unremarkable. BONES: No acute fracture. Severe degenerative changes right hip. OTHER FINDINGS: None. IMPRESSION: Mild colitis, limited to the descending colon and adjacent sigmoid colon. Additional benign and/or incidental findings described above.
[2018-08-29] MEDS ORDERED: Ciprofloxacin 400mg/200ml D5W 400 MG/200 ML BAG IVPB STA (12:38)
[2018-08-29] MEDS ORDERED: metroNIDAZOLE IV 500 mg/100 ml 500 MG/100 ML BAG IVPB STA (12:38)
[2018-08-29] MEDS ORDERED: Sodium Chloride 0.9% 1,000 ML IV SCH (13:00)
[2018-08-29] MEDS ORDERED: Insulin Reg-MEDIUM-Coverage SC PRN (13:20)
--- NOTE | 2018-08-29 14:58 | CP.PCM.CON ---
<Anni Ascencio - Last Filed: 08/29/18 17:50> History of Present Illness - History of Present Illness History of Present Illness: Anni Ascencio, PGY2, GI Consult Note for Dr Escamilla: CC: lightheadedness 53 year old male with PMH DM2, bipolar disorder, cocaine abuse, presents to the ED for lightheadedness for past 3 days. Patient reports that he started feeling lightheaded on Wednesday. Then he developed watery, non-bloody diarrhea on Wednesday, reports 4 episodes. Denies abdominal pain, tenesmus, vomiting, hematochezia, melena, prior episodes. Reports mild nausea this morning, and 3 additional episodes of watery diarrhea today (last one at 11:30 AM). States that his last colonoscopy 10 years ago at [facility], was "normal." Denies fevers, chills, chest pain, SOB, headache, cough, jaundice, itchiness, weight loss, urinary symptoms, leg swelling. Of note, patient was recently admitted to [facility] on 07/25- 08/02 for MSSA bacteremia and multifocal PNA, was discharged on 2 weeks of outpatient Nafcillin. Patient reports that he did take any antibiotics at home. Denies sick contacts, raw meats or leafy vegetables consumption recently. In ED, patient found to have orthostatic vitals, CAT abd pelvis showed mild sigmoid and descending colon colitis. Given zofran, tylenol. And started on NS @ 100/hr. 12 point ROS obtained and negative, except as per HPI. PMD Dr. Smith Past medical history: Type 2 DM, 30 years history of cocaine abuse, alcohol abuse Past surgical history: shoulder repair, sigmoid colon removal due to diverticulitis (in early 1999) Home medications: Metformin, trazadone, depakote, lamictal, lysine Allergies: Motrin Family history: denies Social history: 30 year cocaine abuse. 5 year history of cigar smoker. Denies any other illicit drug use. Denies drinking alcohol. Review of Systems - Review of Systems All systems: reviewed and no additional remarkable complaints except Review of Systems: as per HPI Past Patient History - Infectious Disease Hx of Infectious Diseases: None - Tetanus Immunizations Tetanus Immunization: Unknown - Past Social History Smoking Status: Current Some Days Smoker - CARDIAC Hx Pacemaker: No - PULMONARY Hx Respiratory Disorders: Yes (SMOKES 1 CIGAR/WEEK) - NEUROLOGICAL Hx Neurological Disorder: Yes Hx Dizziness: Yes (SYNCOPE) - HEENT Hx HEENT Problems: No - RENAL Hx Chronic Kidney Disease: Yes Hx Kidney Stones: Yes - ENDOCRINE/METABOLIC Hx Diabetes Mellitus Type 2: Yes - HEMATOLOGICAL/ONCOLOGICAL Hx Cancer: No - INTEGUMENTARY Hx Dermatological Problems: Yes (TATTOOS) - MUSCULOSKELETAL/RHEUMATOLOGICAL Hx Musculoskeletal Disorders: Yes (R SHOULDER SX) Hx Arthritis: Yes Hx Falls: Yes (2-18-19) Hx Unsteady Gait: Yes - GASTROINTESTINAL Hx Gastrointestinal Disorders: Yes Hx Diverticulitis: Yes Hx Gall Bladder Disease: Yes - GENITOURINARY/GYNECOLOGICAL Hx Genitourinary Disorders: No - PSYCHIATRIC Hx Psychophysiologic Disorder: Yes Hx Anxiety: Yes Hx Bipolar Disorder: Yes Hx Depression: Yes Hx Schizophrenia: Yes Hx Substance Use: Yes (LAST USED 1 GM.USING FOR 35 YRS.) - SURGICAL HISTORY Hx Mastectomy: No - ANESTHESIA Hx Anesthesia Reactions: No Hx Malignant Hyperthermia: No Meds Allergies/Adverse Reactions: Allergies Allergy/AdvReac Type Severity Reaction Status Date / Time diphenhydramine Allergy Severe SWELLING Verified 08/29/18 10:46 [From Benadryl] ibuprofen Allergy Severe SWELLING Verified 08/29/18 10:46 - Medications Medications: Current Medications Sodium Chloride (Sodium Chloride 0.9%) 1,000 mls @ 100 mls/hr IV .Q10H [facility]A Stop: 08/29/18 20:17 Last Admin: 08/29/18 10:38 Dose: 100 mls/hr Sodium Chloride (Sodium Chloride 0.9%) 1,000 mls @ 100 mls/hr IV .Q10H [facility] Metronidazole (Flagyl) 500 mg in 100 mls @ 100 mls/hr IVPB Q8 [facility]; Protocol Ceftriaxone Sodium (Rocephin 1 Gram Ivpb) 1 gm in 100 mls @ 100 mls/hr IVPB DAILY [facility]; Protocol Insulin Human Regular (Humulin R Med) 0 units SC ACHS [facility] Physical Exam - Constitutional Appears: Non-toxic, No Acute Distress - Head Exam Head Exam: ATRAUMATIC, NORMOCEPHALIC - Eye Exam Eye Exam: EOMI, PERRL. absent: Conjunctival injection, Nystagmus, Scleral icterus Pupil Exam: NORMAL ACCOMODATION, PERRL. absent: Irregular, Mydriatic - ENT Exam ENT Exam: Mucous Membranes Moist - Neck Exam Neck exam: Positive for: Full Rom - Respiratory Exam Respiratory Exam: Clear to Auscultation Bilateral, NORMAL BREATHING PATTERN. absent: Wheezes, Respiratory Distress - Cardiovascular Exam Cardiovascular Exam: RRR, +S1, +S2. absent: Systolic Murmur - GI/Abdominal Exam GI & Abdominal Exam: Hyperactive Bowel Sounds, Soft, Tenderness (Diffusely mildly tender on deep palpation in all quadrants). absent: Distended, Firm, Guarding, Mass, Rebound, Rigid - Extremities Exam Extremities exam: Positive for: normal inspection. Negative for: calf tenderness, pedal edema - Back Exam Back exam: NORMAL INSPECTION - Neurological Exam Neurological exam: Alert, Oriented x3 - Psychiatric Exam Psychiatric exam: Normal Affect, Normal Mood - Skin Skin Exam: Dry, Normal Color, Warm Results - Vital Signs Recent Vital Signs: Last Vital Signs Temp 98 F 08/29/18 09:48 Pulse 86 08/29/18 09:48 Resp 18 08/29/18 09:48 BP 86/50 L 08/29/18 09:48 Pulse Ox 98 08/29/18 09:48 - Labs Result Diagrams: 08/29/18 10:05 08/29/18 10:05 Labs: Laboratory Results - last 24 hr 08/29/18 08/29/18 08/29/18 10:05 10:05 10:05 WBC 6.8 D RBC 4.09 Hgb 12.0 L Hct 36.1 L MCV 88.3 MCH 29.3 MCHC 33.2 RDW 13.9 Plt Count 227 MPV 9.5 Neut % (Auto) 71.4 H Lymph % (Auto) 20.1 L [place] % (Auto) 5.0 Eos % (Auto) 3.4 Baso % (Auto) 0.1 Lymph # (Auto) 1.4 [place] # (Auto) 0.3 Eos # (Auto) 0.2 Baso # (Auto) 0.01 Absolute Neuts (auto) 4.88 PT 12.0 INR 1.06 APTT 31.7 Sodium Potassium Chloride Carbon Dioxide Anion Gap BUN Creatinine Est GFR ( Amer) Est GFR (Non-Af Amer) Random Glucose Calcium Total Bilirubin AST ALT Alkaline Phosphatase Lactate Dehydrogenase Total Creatine Kinase Troponin I Total Protein Albumin Globulin Albumin/Globulin Ratio Lipase Free T4 TSH 3rd Generation Urine Color Yellow Urine Appearance Clear Urine pH 6.0 Ur Specific [place] 1.020 Urine Protein Negative Urine Glucose (UA) Negative Urine Ketones Negative Urine Blood Negative Urine Nitrate Negative Urine Bilirubin Negative Urine Urobilinogen 0.2 Ur Leukocyte Esterase Trace H Urine RBC 0 - 2 Urine WBC 2 - 5 Ur Epithelial Cells None Urine Bacteria Small 08/29/18 08/29/18 10:05 10:05 WBC RBC Hgb Hct MCV MCH MCHC RDW Plt Count MPV Neut % (Auto) Lymph % (Auto) [place] % (Auto) Eos % (Auto) Baso % (Auto) Lymph # (Auto) [place] # (Auto) Eos # (Auto) Baso # (Auto) Absolute Neuts (auto) PT INR APTT Sodium 139 Potassium 4.3 Chloride 105 Carbon Dioxide 23 Anion Gap 15 BUN 20 Creatinine 1.2 Est GFR ( Amer) > 60 Est GFR (Non-Af Amer) > 60 Random Glucose 197 H Calcium 9.5 Total Bilirubin 0.4 AST 21 ALT < 6 L Alkaline Phosphatase 63 Lactate Dehydrogenase 393 Total Creatine Kinase 94 Troponin I < 0.01 Total Protein 8.5 H Albumin 4.2 Globulin 4.3 Albumin/Globulin Ratio 1.0 L Lipase 296 Free T4 1.07 TSH 3rd Generation 3.24 Urine Color Urine Appearance Urine pH Ur Specific [place] Urine Protein Urine Glucose (UA) Urine Ketones Urine Blood Urine Nitrate Urine Bilirubin Urine Urobilinogen Ur Leukocyte Esterase Urine RBC Urine WBC Ur Epithelial Cells Urine Bacteria Assessment & Plan - Assessment and Plan (Free Text) Assessment: This is a 53 year old poor historian with PMH bipolar disorder, DM2, cocaine abuse, is here for lightheadedness, watery diarrhea: 1. Watery diarrhea 2/2 C diff colitis vs other infectious colitis vs ischemic colitis vs gastroenteritis 2. Dehydration 3. History of DM, bipolar disorder - will obtain c diff, stool culture, ova/parasites - Clear liquid diet. advance diet as tolerated. - NS @ 100/hr - rocephin, flagyl - continue management of diabetes and bipolar as per primary. Will discuss with Dr Escamilla. <Oni Escamilla V - Last Filed: 08/29/18 20:58> Meds - Medications Medications: Current Medications Sodium Chloride (Sodium Chloride 0.9%) 1,000 mls @ 100 mls/hr IV .Q10H [facility] Metronidazole (Flagyl) 500 mg in 100 mls @ 100 mls/hr IVPB Q8 [facility]; Protocol Last Admin: 08/29/18 18:13 Dose: 100 mls/hr Ceftriaxone Sodium (Rocephin 1 Gram Ivpb) 1 gm in 100 mls @ 100 mls/hr IVPB DAILY [facility]; Protocol Sodium Chloride (Sodium Chloride 0.9%) 1,000 mls @ 100 mls/hr IV .Q10H [facility] Stop: 08/30/18 23:59 Last Admin: 08/29/18 18:54 Dose: Not Given Insulin Human Regular (Humulin R Med) 0 units SC ACHS [facility] Last Admin: 08/29/18 17:40 Dose: Not Given Results - Vital Signs Recent Vital Signs: Last Vital Signs Temp 99 F 08/29/18 17:18 Pulse 70 08/29/18 18:00 Resp 16 08/29/18 18:23 BP 131/82 08/29/18 17:18 Pulse Ox 98 08/29/18 17:18 - Labs Result Diagrams: 08/29/18 10:05 08/29/18 10:05 Labs: Laboratory Results - last 24 hr 08/29/18 08/29/18 08/29/18 10:05 10:05 10:05 WBC 6.8 D RBC 4.09 Hgb 12.0 L Hct 36.1 L MCV 88.3 MCH 29.3 MCHC 33.2 RDW 13.9 Plt Count 227 MPV 9.5 Neut % (Auto) 71.4 H Lymph % (Auto) 20.1 L [place] % (Auto) 5.0 Eos % (Auto) 3.4 Baso % (Auto) 0.1 Lymph # (Auto) 1.4 [place] # (Auto) 0.3 Eos # (Auto) 0.2 Baso # (Auto) 0.01 Absolute Neuts (auto) 4.88 PT 12.0 INR 1.06 APTT 31.7 Sodium Potassium Chloride Carbon Dioxide Anion Gap BUN Creatinine Est GFR ( Amer) Est GFR (Non-Af Amer) POC Glucose (mg/dL) Random Glucose Calcium Total Bilirubin AST ALT Alkaline Phosphatase Lactate Dehydrogenase Total Creatine Kinase Troponin I Total Protein Albumin Globulin Albumin/Globulin Ratio Lipase Free T4 TSH 3rd Generation Urine Color Yellow Urine Appearance Clear Urine pH 6.0 Ur Specific [place] 1.020 Urine Protein Negative Urine Glucose (UA) Negative Urine Ketones Negative Urine Blood Negative Urine Nitrate Negative Urine Bilirubin Negative Urine Urobilinogen 0.2 Ur Leukocyte Esterase Trace H Urine RBC 0 - 2 Urine WBC 2 - 5 Ur Epithelial Cells None Urine Bacteria Small 08/29/18 08/29/18 08/29/18 10:05 10:05 16:21 WBC RBC Hgb Hct MCV MCH MCHC RDW Plt Count MPV Neut % (Auto) Lymph % (Auto) [place] % (Auto) Eos % (Auto) Baso % (Auto) Lymph # (Auto) [place] # (Auto) Eos # (Auto) Baso # (Auto) Absolute Neuts (auto) PT INR APTT Sodium 139 Potassium 4.3 Chloride 105 Carbon Dioxide 23 Anion Gap 15 BUN 20 Creatinine 1.2 Est GFR ( Amer) > 60 Est GFR (Non-Af Amer) > 60 POC Glucose (mg/dL) 197 H Random Glucose 197 H Calcium 9.5 Total Bilirubin 0.4 AST 21 ALT < 6 L Alkaline Phosphatase 63 Lactate Dehydrogenase 393 Total Creatine Kinase 94 Troponin I < 0.01 Total Protein 8.5 H Albumin 4.2 Globulin 4.3 Albumin/Globulin Ratio 1.0 L Lipase 296 Free T4 1.07 TSH 3rd Generation 3.24 Urine Color Urine Appearance Urine pH Ur Specific [place] Urine Protein Urine Glucose (UA) Urine Ketones Urine Blood Urine Nitrate Urine Bilirubin Urine Urobilinogen Ur Leukocyte Esterase Urine RBC Urine WBC Ur Epithelial Cells Urine Bacteria Attending/Attestation - Attestation I have personally seen and examined this patient.: Yes I have fully participated in the care of the patient.: Yes I have reviewed all pertinent clinical information: Yes Notes (Text): This patient was seen and evaluated earlier today along with the medical practice assistant. This is an addendum to the consultation report dictated by the korey padgett. Clinically most suggestive of infectious gastroenteritis the differential diagnosis should include inflammatory bowel disease less likely ischemia would recommend stool culture stool for C. difficile and complete the course of antibiotics. Patient would benefit from elective colonoscopy evaluation. Thank you very much for allowing us to participate in the care of the patient 08/29/18 20:56
[2018-08-29] MEDS: Insulin Reg-MEDIUM-Coverage SC SCH ×2 (17:40→23:07)
[2018-08-29] MEDS: metroNIDAZOLE IV 500 mg/100 ml 500 MG/100 ML BAG IVPB SCH ×2 (18:13→22:00)
[2018-08-29] MEDS: Sodium Chloride 0.9% 1,000 ML IV SCH (18:54)
--- NOTE | 2018-08-30 00:52 | CP.PCM.PCO ---
Physician Communication Note - Physician Communication Note Physician Communication Note: Trazodone given once for sleep - home med not reconciled
[2018-08-30] MEDS: metroNIDAZOLE IV 500 mg/100 ml 500 MG/100 ML BAG IVPB SCH ×4 (01:17→21:57)
[2018-08-30] MEDS ORDERED: Divalproex 500 mg ER (ONCE DAILY formulation) PO ONE (01:24)
--- NOTE | 2018-08-30 01:27 | CP.PCM.PCO ---
Physician Communication Note - Physician Communication Note Physician Communication Note: Patient requesting evening meds - given one time dose of all home HS meds
[2018-08-30] MEDS: Insulin Reg-MEDIUM-Coverage SC SCH ×4 (07:42→21:51)
--- NOTE | 2018-08-30 08:16 | CP.PCM.PN ---
Subjective - Date & Time of Evaluation Date of Evaluation: 08/30/18 Time of Evaluation: 08:13 - Subjective Subjective: Anni Ascencio, PGY2, GI Progress Note for Dr Escamilla: Patient seen and examined at bedside. Patient needed his psych meds overnight, given by overnight resident. Otherwise, patient reports that he had a restful sleep. Reports that he tolerated clear liquid diet well yesterday. Reports good appetite and would like his diet to be advanced. Patient reports 1 watery diarrheal episode after breakfast. Denies abdominal pain, melena, nausea, vomiting, fevers, chills, lightheadedness. Objective - Vital Signs/Intake and Output Vital Signs (last 24 hours): Temp Pulse Resp BP Pulse Ox 98.4 F 77 16 144/75 98 08/30/18 00:01 08/30/18 06:00 08/30/18 00:01 08/30/18 00:01 08/30/18 00:01 Intake and Output: 08/30/18 08/30/18 06:59 18:59 Intake Total 1380 Balance 1380 - Medications Medications: Current Medications Divalproex Sodium (Depakote Er(Once Daily)) 500 mg PO HS [facility]; Protocol Fluticasone Propionate (Flonase) 1 actuation NS DAILY REPLACED BY [facility] Metronidazole (Flagyl) 500 mg in 100 mls @ 100 mls/hr IVPB Q8 [facility]; Protocol Last Admin: 08/30/18 06:42 Dose: Not Given Ceftriaxone Sodium (Rocephin 1 Gram Ivpb) 1 gm in 100 mls @ 100 mls/hr IVPB DAILY [facility]; Protocol Sodium Chloride (Sodium Chloride 0.9%) 1,000 mls @ 100 mls/hr IV .Q10H [facility] Stop: 08/30/18 23:59 Last Admin: 08/29/18 18:54 Dose: Not Given Insulin Human Regular (Humulin R Med) 0 units SC ACHS [facility] Last Admin: 08/29/18 23:07 Dose: Not Given Lamotrigine (Lamictal) 200 mg PO HS [facility]; Protocol Metformin HCl (Glucophage) 500 mg PO BID REPLACED BY [facility] Non-Formulary Medication (Lysine Hcl [L-Lysine]) 1,000 mg PO DAILY [facility] Trazodone HCl (Desyrel) 150 mg PO HS REPLACED BY [facility] - Labs Labs: 08/29/18 10:05 08/29/18 10:05 PT 12.0 SECONDS (9.4-12.5) 08/29/18 10:05 INR 1.06 08/29/18 10:05 APTT 31.7 Seconds (26.9-38.3) 08/29/18 10:05 - Additional Findings Additional findings: - Constitutional Appears: Non-toxic, No Acute Distress - Head Exam Head Exam: ATRAUMATIC, NORMOCEPHALIC - Eye Exam Eye Exam: EOMI, PERRL. absent: Conjunctival injection, Nystagmus, Scleral icterus Pupil Exam: NORMAL ACCOMODATION, PERRL. absent: Irregular, Mydriatic - ENT Exam ENT Exam: Mucous Membranes Moist - Neck Exam Neck exam: Positive for: Full Rom - Respiratory Exam Respiratory Exam: Clear to Auscultation Bilateral, NORMAL BREATHING PATTERN. absent: Wheezes, Respiratory Distress - Cardiovascular Exam Cardiovascular Exam: RRR, +S1, +S2. absent: Systolic Murmur - GI/Abdominal Exam GI & Abdominal Exam: Normal Bowel Sounds, Soft, nontender. absent: Distended, Firm, Guarding, Mass, Rebound, Rigid - Extremities Exam Extremities exam: Positive for: normal inspection. Negative for: calf tenderness, pedal edema - Back Exam Back exam: NORMAL INSPECTION - Neurological Exam Neurological exam: Alert, Oriented x3 - Psychiatric Exam Psychiatric exam: Normal Affect, Normal Mood - Skin Skin Exam: Dry, Normal Color, Warm Assessment and Plan - Assessment and Plan (Free Text) Assessment: This is a 53 year old poor historian with PMH bipolar disorder, DM2, cocaine abuse, is here for lightheadedness, watery diarrhea: 1. Watery diarrhea, 2/2 likely gastroenteritis, vs C diff colitis vs ischemic colitis 2. Dehydration 3. History of DM, bipolar disorder - Patient had a watery diarrheal episode after breakfast, sent for c diff, stool culture, ova/parasites - Will advance diet to full liquid diet. - if tolerating full liquid diet, can advance to soft, low fiber diet for lunch - jonathon oliveira - continue management of diabetes and bipolar as per primary. Discussed case with Dr Escamilla.
[2018-08-30] MEDS: Fluticasone Nasal 50 mcg/Spray NS SCH (10:33)
[2018-08-30] MEDS: cefTRIAXone 1 gm 1 GM/100 ML BAG IVPB SCH (10:34)
--- NOTE | 2018-08-30 14:54 | HP ---
DATE OF EXAM: 08/29/2018 CHIEF COMPLAINT: The patient was seen in the emergency room on 08/30/2018. The patient came in because of persistent diarrhea, vomiting, nausea, and few lightheadedness. HISTORY OF PRESENT ILLNESS: This is a patient known to me 53-year-old male with history of chronic psychiatric problem, bipolar disorders. He did have a history of recently short from hospital because of the multifocal pneumonia was in three weeks ago, and received antibiotics for almost 4 to 6 weeks. The patient came in today with diarrhea one time, and denied any fever or chills. The patient has no other complaints. PAST MEDICAL HISTORY: As I mentioned; 1. History of recent multifocal pneumonia, treated with IV antibiotics for 6 weeks. 2. History of depression, bipolar disorder. 3. Drug use disorder. 4. Tobacco use disorder. 5. Diabetes. 6. He does have chronic osteoarthritis, chronic back pain. ALLERGIES: HE IS ALLERGIC TO BENADRYL AND IBUPROFEN. FAMILY HISTORY: Noncontributory. REVIEW OF SYSTEMS: He does have lightheadedness, chronic back pain, hip pain, and difficulty ambulation, otherwise negative. PHYSICAL EXAMINATION: VITAL SIGNS: The patient in the emergency room comfortable. VITAL SIGNS: Temperature 98, heart rate 86, blood pressure 109/72 and standing went down to 86/50, respirations 18, saturation 98%. HEAD AND NECK: Normal. No JVD. No thyromegaly. CHEST: Clear bilateral. CARDIAC: First sound and second sound normal. No murmur, rub or gallop. ABDOMEN: Soft, nontender. EXTREMITIES: No edema. NEUROLOGIC: Normal. LABORATORY DATA: Shows white count 6.8, hemoglobin 12, hematocrit 36.1, platelets 227. PT and PTT is normal. Chemistry shows sodium 139, potassium 4.3, chloride 105, bicarb 23, BUN 20, creatinine 1.2, blood sugar 197. Liver function test is normal. Troponin is negative. The patient also had abdominal CT, which shows mild colitis, descending colon and sigmoid colon. The patient also had a CT of the head, which shows no acute intracranial bleed. IMPRESSION AND PLAN: This is a 53-year-old male with history of antibiotic use before who came in with diarrhea, vomiting, possible acute infectious, gastroenteritis. We should considered Clostridium difficile colitis, history of antibiotic, the patient is on IV antibiotic. We will consider antibiotic IV Rocephin and Flagyl and we will continue monitor the patient. Continue IV fluid for now. Monitor the patient and resume his psych medications and insulin coverage for his diabetes. aDni Smith MD
[2018-08-30 16:39] VITALS: RESP 20
--- NOTE | 2018-08-30 16:52 | CP.PCM.APN ---
<Andi,Kovil V - Last Filed: 08/30/18 23:44> Objective - Vital Signs/Intake and Output Vital Signs (last 24 hours): Temp Pulse Resp BP Pulse Ox 98.2 F 88 20 118/79 97 08/30/18 16:39 08/30/18 22:00 08/30/18 16:39 08/30/18 16:39 08/30/18 16:39 Intake and Output: 08/30/18 08/31/18 18:59 06:59 Intake Total 1200 Balance 1200 - Medications Medications: Current Medications Divalproex Sodium (Depakote Er(Once Daily)) 500 mg PO HS [facility]; Protocol Last Admin: 08/30/18 21:57 Dose: 500 mg Fluticasone Propionate (Flonase) 1 actuation NS DAILY [facility] Last Admin: 08/30/18 10:33 Dose: 1 spray Metronidazole (Flagyl) 500 mg in 100 mls @ 100 mls/hr IVPB Q8 [facility]; Protocol Last Admin: 08/30/18 21:57 Dose: 100 mls/hr Ceftriaxone Sodium (Rocephin 1 Gram Ivpb) 1 gm in 100 mls @ 100 mls/hr IVPB DAILY [facility]; Protocol Last Admin: 08/30/18 10:34 Dose: 100 mls/hr Sodium Chloride (Sodium Chloride 0.9%) 1,000 mls @ 100 mls/hr IV .Q10H [facility] Stop: 08/30/18 23:59 Last Admin: 08/29/18 18:54 Dose: Not Given Insulin Human Regular (Humulin R Med) 0 units SC ACHS [facility] Last Admin: 08/30/18 21:51 Dose: Not Given Lamotrigine (Lamictal) 200 mg PO HS [facility]; Protocol Last Admin: 08/30/18 21:57 Dose: 200 mg Metformin HCl (Glucophage) 500 mg PO BID [facility] Last Admin: 08/30/18 17:20 Dose: 500 mg Non-Formulary Medication (Lysine Hcl [L-Lysine]) 1,000 mg PO DAILY [facility] Trazodone HCl (Desyrel) 150 mg PO [facility] Last Admin: 08/30/18 21:56 Dose: 150 mg - Labs Labs: 08/29/18 10:05 08/29/18 10:05 PT 12.0 SECONDS (9.4-12.5) 08/29/18 10:05 INR 1.06 08/29/18 10:05 APTT 31.7 Seconds (26.9-38.3) 08/29/18 10:05 Attending/Attestation - Attestation I have personally seen and examined this patient.: Yes I have fully participated in the care of the patient.: Yes I have reviewed all pertinent clinical information: Yes Notes (Text): This is an addendum to the GI progress report dictated by the medical technicians. The patient was seen and long with the resident evaluated today. Patient is clinically improving once a diet elective colonoscopy I did discuss with the patient at length who fully understood Completed antibiotics Elective colonoscopy Contact details are given to the patient 08/30/18 23:51 <Neema Chauhan - Last Filed: 08/31/18 12:00> Subjective - Date & Time of Evaluation Date of Evaluation: 08/30/18 Time of Evaluation: 01:00 - Subjective Subjective: Pt. seen and examined at bed, sitting up . Just had liquid lunch, tolerated well, denied abdominal pain, denied vomiting, states had 1 episode of diarrhea today. Objective - Vital Signs/Intake and Output Vital Signs (last 24 hours): Temp Pulse Resp BP Pulse Ox 98.2 F 82 20 118/79 97 08/30/18 16:39 08/30/18 16:39 08/30/18 16:39 08/30/18 16:39 08/30/18 16:39 Intake and Output: 08/30/18 08/30/18 06:59 18:59 Intake Total 1380 Balance 1380 - Medications Medications: Current Medications Divalproex Sodium (Depakote Er(Once Daily)) 500 mg PO HS [facility]; Protocol Fluticasone Propionate (Flonase) 1 actuation NS DAILY [facility] Last Admin: 08/30/18 10:33 Dose: 1 spray Metronidazole (Flagyl) 500 mg in 100 mls @ 100 mls/hr IVPB Q8 [facility]; Protocol Last Admin: 08/30/18 13:23 Dose: 100 mls/hr Ceftriaxone Sodium (Rocephin 1 Gram Ivpb) 1 gm in 100 mls @ 100 mls/hr IVPB DAILY [facility]; Protocol Last Admin: 08/30/18 10:34 Dose: 100 mls/hr Sodium Chloride (Sodium Chloride 0.9%) 1,000 mls @ 100 mls/hr IV .Q10H [facility] Stop: 08/30/18 23:59 Last Admin: 08/29/18 18:54 Dose: Not Given Insulin Human Regular (Humulin R Med) 0 units SC ACHS [facility] Last Admin: 08/30/18 13:22 Dose: 8 units Lamotrigine (Lamictal) 200 mg PO HS [facility]; Protocol Metformin HCl (Glucophage) 500 mg PO BID [facility] Last Admin: 08/30/18 10:35 Dose: 500 mg Non-Formulary Medication (Lysine Hcl [L-Lysine]) 1,000 mg PO DAILY [facility] Trazodone HCl (Desyrel) 150 mg PO HS [facility] - Labs Labs: 08/29/18 10:05 08/29/18 10:05 PT 12.0 SECONDS (9.4-12.5) 08/29/18 10:05 INR 1.06 08/29/18 10:05 APTT 31.7 Seconds (26.9-38.3) 08/29/18 10:05 - Constitutional Appears: Well, Non-toxic - Head Exam Head Exam: NORMOCEPHALIC - Eye Exam Eye Exam: Normal appearance Pupil Exam: NORMAL ACCOMODATION - ENT Exam ENT Exam: Mucous Membranes Moist, Normal Exam - Neck Exam Neck Exam: Full ROM - Respiratory Exam Respiratory Exam: Clear to Ausculation Bilateral - Cardiovascular Exam Cardiovascular Exam: REGULAR RHYTHM, +S1, +S2 - GI/Abdominal Exam GI & Abdominal Exam: Soft - Rectal Exam Rectal Exam: Deferred - Exam Exam: absent: Circumcision, NORMAL INSPECTION, Scrotal Swelling, Testicular Tenderness, Uretheral Discharge, Testicular Vertical Lie, Bladder Distension External exam: absent: Ecchymosis, Erythema, Lacerations, Lesions, NORMAL EXTERNAL EXAM, Swelling Speculum exam: absent: Cervical Discharge, Erythema, Foreign Body, Laceration, NORMAL SPECULUM EXAM, Tissue, Vaginal Bleeding, Vaginal Discharge Bimanual exam: absent: Adenexal Mass, Adnexal, Cervical Motion Tendernes, NORMAL BIMANUAL EXAM, Uterine Enlargement, Uterine Tenderness - Extremities Exam Extremities Exam: Full ROM - Neurological Exam Neurological Exam: Alert, Awake, Oriented x3 Assessment and Plan - Assessment and Plan (Free Text) Assessment: ITS Impressions Abdomen/Pelvis CT 08/29/18 10:18 IMPRESSION: Mild colitis, limited to the descending colon and adjacent sigmoid colon. Additional benign and/or incidental findings described above. Head CT 08/29/18 10:34 IMPRESSION: No acute or significant findings related to/ accounting for the clinical presentation. Additional benign and/or incidental findings described above. No significant interval change compared to the prior examination(s). Assessment: 53 y/o male with PMH of DM, bipolar disorder, CAD presents to the ED c/o lightheadedness x 2 days. Associated nausea and brown, watery, non-bloody diarrhea 4-5 times daily starting yesterday. Lightheadedness is worse with changes in position, in E.D. found to have orthostatic hypotension, admitted wi th orthostatic hypotension and colitis, dehydration, with GI and ID consulted for further eval and treatment. Plan: 1. Orthostatic hypotension Improved on current IVF, continue to monitor orthostatic BP readings 2. Colitis Cont, IV Flagyl, Rocephin per GI/ID. monitor improvement of diarrhea, OP , stool cx results pending. Diet advanced to full liquids, per GI. 3. Dehydration, Cont IVF.
[2018-08-30] MEDS: Sodium Chloride 0.9% 1,000 ML IV SCH (19:00)
[2018-08-30] MEDS: Divalproex 500 mg ER (ONCE DAILY formulation) PO SCH (21:57)
[2018-08-31 00:28] VITALS: BP 125/77; TEMP 98.6; O2SAT 96
[2018-08-31] MEDS: metroNIDAZOLE IV 500 mg/100 ml 500 MG/100 ML BAG IVPB SCH ×3 (06:06→21:19)
[2018-08-31 07:42] LABS: BLOOD UREA NITROGEN 12 mg/dL (7-21); CALCIUM 9.4 mg/dL (8.4-10.5); GFR NON-AFRICAN AMERICAN > 60
[2018-08-31] MEDS: Insulin Reg-MEDIUM-Coverage SC SCH ×4 (10:09→21:43)
[2018-08-31] MEDS: Fluticasone Nasal 50 mcg/Spray NS SCH (10:09)
[2018-08-31] MEDS: cefTRIAXone 1 gm 1 GM/100 ML BAG IVPB SCH (10:10)
[2018-08-31] MEDS: LYSINE HCL 1000 MG PO SCH (11:15)
--- NOTE | 2018-08-31 12:15 | CP.PCM.PCO ---
Physician Communication Note - Physician Communication Note Physician Communication Note: pt.orthostatic bP 98/67,standing,dizzy,IVF resumed, card consult pending
[2018-08-31] MEDS: Sodium Chloride 0.9% 1,000 ML IV SCH ×2 (12:55→21:21)
--- NOTE | 2018-08-31 17:47 | CP.PCM.PN ---
<Anni Ascencio - Last Filed: 08/31/18 17:41> Subjective - Date & Time of Evaluation Date of Evaluation: 08/31/18 Time of Evaluation: 10:00 - Subjective Subjective: Anni Ascencio, PGY2, GI Progress Note for Dr Escamilla: Patient seen and examined at bedside. No acute events overnight. Patient reports 3 episodes of watery diarrhea within past 24 hours. Patient reports slight abdominal discomfort after eating soft, low fiber diet overnight at 1 AM. However, patient states that he tolerated soft diet well for breakfast and lunch today. Denies nausea, vomiting, fevers, chills. Patient reports feeling lightheaded, for which he is receiving Cardiology eval. Objective - Vital Signs/Intake and Output Vital Signs (last 24 hours): Temp Pulse Resp BP Pulse Ox 98.6 F 96 H 20 125/77 96 08/31/18 00:01 08/31/18 10:00 08/31/18 00:01 08/31/18 00:01 08/31/18 00:01 Intake and Output: 08/31/18 08/31/18 06:59 18:59 Intake Total 2140 Output Total 0 Balance 2140 - Medications Medications: Current Medications Acetaminophen (Tylenol 325mg Tab) 650 mg PO Q6H PRN PRN Reason: Pain, moderate (4-7) Last Admin: 08/31/18 10:02 Dose: 650 mg Divalproex Sodium (Depakote Er(Once Daily)) 500 mg PO HS [facility]; Protocol Last Admin: 08/30/18 21:57 Dose: 500 mg Fluticasone Propionate (Flonase) 1 actuation NS DAILY [facility] Last Admin: 08/31/18 10:09 Dose: 1 spray Metronidazole (Flagyl) 500 mg in 100 mls @ 100 mls/hr IVPB Q8 [facility]; Protocol Last Admin: 08/31/18 15:18 Dose: 100 mls/hr Ceftriaxone Sodium (Rocephin 1 Gram Ivpb) 1 gm in 100 mls @ 100 mls/hr IVPB DAILY [facility]; Protocol Last Admin: 08/31/18 10:10 Dose: 100 mls/hr Sodium Chloride (Sodium Chloride 0.9%) 1,000 mls @ 100 mls/hr IV .Q10H [facility] Last Admin: 08/31/18 12:55 Dose: 100 mls/hr Insulin Human Regular (Humulin R Med) 0 units SC ACHS [facility] Last Admin: 08/31/18 12:54 Dose: 1 units Lamotrigine (Lamictal) 200 mg PO HS [facility]; Protocol Last Admin: 08/30/18 21:57 Dose: 200 mg Metformin HCl (Glucophage) 500 mg PO BID [facility] Last Admin: 08/31/18 10:09 Dose: 500 mg Midodrine (Proamatine) 2.5 mg PO BID [facility] Lysine Hcl [L-Lysine ] 1,000 Mg (Home Med) 1,000 mg PO DAILY [facility] Last Admin: 08/31/18 11:15 Dose: Not Given Trazodone HCl (Desyrel) 150 mg PO [facility] Last Admin: 08/30/18 21:56 Dose: 150 mg - Labs Labs: 08/29/18 10:05 08/31/18 06:45 PT 12.0 SECONDS (9.4-12.5) 08/29/18 10:05 INR 1.06 08/29/18 10:05 APTT 31.7 Seconds (26.9-38.3) 08/29/18 10:05 - Additional Findings Additional findings: - Constitutional Appears: Non-toxic, No Acute Distress - Head Exam Head Exam: ATRAUMATIC, NORMOCEPHALIC - Eye Exam Eye Exam: EOMI, PERRL. absent: Conjunctival injection, Nystagmus, Scleral icterus Pupil Exam: NORMAL ACCOMODATION, PERRL. absent: Irregular, Mydriatic - ENT Exam ENT Exam: Mucous Membranes Moist - Neck Exam Neck exam: Positive for: Full Rom - Respiratory Exam Respiratory Exam: Clear to Auscultation Bilateral, NORMAL BREATHING PATTERN. absent: Wheezes, Respiratory Distress - Cardiovascular Exam Cardiovascular Exam: RRR, +S1, +S2. absent: Systolic Murmur - GI/Abdominal Exam GI & Abdominal Exam: Normal Bowel Sounds, Soft, nontender. absent: Distended, Firm, Guarding, Mass, Rebound, Rigid - Extremities Exam Extremities exam: Positive for: normal inspection. Negative for: calf tenderness, pedal edema - Back Exam Back exam: NORMAL INSPECTION - Neurological Exam Neurological exam: Alert, Oriented x3 - Psychiatric Exam Psychiatric exam: Normal Affect, Normal Mood - Skin Skin Exam: Dry, Normal Color, Warm Assessment and Plan - Assessment and Plan (Free Text) Assessment: This is a 53 year old poor historian with PMH bipolar disorder, DM2, cocaine abuse, is here for lightheadedness, watery diarrhea: 1. Watery diarrhea, 2/2 likely gastroenteritis, ruled out C diff colitis, less likely ischemic colitis 2. Dehydration 3. History of DM, bipolar disorder 4. Lightheadedness - Cdiff and ova/parasites negative. - awaiting stool culture results - continue with soft, low fiber diet - rocephin, flagyl - will give imodium x1 - c/w IVF, cardiology eval - continue management of diabetes and bipolar as per primary. Discussed case with Dr Escamilla. <Oni Escamilla V - Last Filed: 08/31/18 23:20> Objective - Vital Signs/Intake and Output Vital Signs (last 24 hours): Temp Pulse Resp BP Pulse Ox 98.6 F 83 20 125/77 96 08/31/18 00:01 08/31/18 18:00 08/31/18 00:01 08/31/18 00:01 08/31/18 00:01 - Medications Medications: Current Medications Acetaminophen (Tylenol 325mg Tab) 650 mg PO Q6H PRN PRN Reason: Pain, moderate (4-7) Last Admin: 08/31/18 10:02 Dose: 650 mg Divalproex Sodium (Depakote Er(Once Daily)) 500 mg PO HS [facility]; Protocol Last Admin: 08/31/18 21:18 Dose: 500 mg Fluticasone Propionate (Flonase) 1 actuation NS DAILY [facility] Last Admin: 08/31/18 10:09 Dose: 1 spray Metronidazole (Flagyl) 500 mg in 100 mls @ 100 mls/hr IVPB Q8 [facility]; Protocol Last Admin: 08/31/18 21:19 Dose: 100 mls/hr Ceftriaxone Sodium (Rocephin 1 Gram Ivpb) 1 gm in 100 mls @ 100 mls/hr IVPB DAILY [facility]; Protocol Last Admin: 08/31/18 10:10 Dose: 100 mls/hr Sodium Chloride (Sodium Chloride 0.9%) 1,000 mls @ 100 mls/hr IV .Q10H [facility] Last Admin: 08/31/18 21:21 Dose: 100 mls/hr Insulin Human Regular (Humulin R Med) 0 units SC ACHS [facility] Last Admin: 08/31/18 21:43 Dose: Not Given Lamotrigine (Lamictal) 200 mg PO HS [facility]; Protocol Last Admin: 08/31/18 21:18 Dose: 200 mg Metformin HCl (Glucophage) 500 mg PO BID [facility] Last Admin: 08/31/18 17:57 Dose: 500 mg Midodrine (Proamatine) 2.5 mg PO BID [facility] Last Admin: 08/31/18 17:59 Dose: 2.5 mg Lysine Hcl [L-Lysine ] 1,000 Mg (Home Med) 1,000 mg PO DAILY [facility] Last Admin: 08/31/18 11:15 Dose: Not Given Trazodone HCl (Desyrel) 150 mg PO HS [facility] Last Admin: 08/31/18 21:18 Dose: 150 mg - Labs Labs: 08/29/18 10:05 08/31/18 06:45 PT 12.0 SECONDS (9.4-12.5) 08/29/18 10:05 INR 1.06 08/29/18 10:05 APTT 31.7 Seconds (26.9-38.3) 08/29/18 10:05 Attending/Attestation - Attestation I have personally seen and examined this patient.: Yes I have fully participated in the care of the patient.: Yes I have reviewed all pertinent clinical information, including history, physical exam and plan: Yes Notes (Text): This patient was seen and evaluated here earlier. This is an addendum to the GI progress report dictated by the resident Patient with again episode of diarrhea. Overall feeling better. advance diet Complete 5 days of antibiotic course Patient still complains of dizziness and postural hypotensive changes. Cardiology follow-up Elective colonoscopy evaluation The present presentation appears to be due to gastroenteritis differential diagnoses include inflammatory bowel disease 08/31/18 23:17
[2018-08-31] MEDS: Divalproex 500 mg ER (ONCE DAILY formulation) PO SCH (21:18)
[2018-08-31 22:19] LABS: BARBITURATES, UR NEGATIVE (NEGATIVE); BENZODIAZEPINES, UR NEGATIVE (NEGATIVE); OPIATES, UR NEGATIVE (NEGATIVE); PHENCYCLIDINE, UR NEGATIVE (NEGATIVE)
--- NOTE | 2018-09-01 00:21 | PN ---
DATE: 08/31/2018 SUBJECTIVE: The patient still complains of dizziness, orthostatic, still has diarrhea 3 times. PHYSICAL EXAMINATION: VITAL SIGNS: Temperature 98.6, heart rate 86, blood pressure 125/77, respirations 20, saturating 96%. HEENT: Head and neck examination is normal. No JVD. No thyromegaly. CHEST: Clear bilateral. CARDIAC: First and second sound normal. No murmur, rub, or gallop. ABDOMEN: Soft and nontender. EXTREMITIES: No edema. NEUROLOGIC: Normal. LABORATORY DATA: The patient has C. Diff which came back negative and also blood cultures x2 came back negative. Urine culture came back negative. IMPRESSION AND PLAN: 1. Infectious diarrhea, possibly will continue current therapy for now. We will discuss further with gastroenterology [facility] consultant, Dr. Escamilla. Stool culture still pending. 2. Orthostatic hypotension, dizziness. We will start midodrine 2.5 mg b.i.d. Continue intravenous fluids. We will see how the patient will do and we will repeat labs in the morning. 3. Diabetes. 4. Bipolar disorder. The patient is otherwise medically stable. Continue Depakote 500 mg at bedtime, Trazodone 150 mg, Flagyl 500 mg every 8 hours, Flonase, metformin b.i.d. 500 mg, insulin low algorithm, Lamictal 200 mg, midodrine 2.5 mg b.i.d., Rocephin 1 g, IV fluid 100 mL per hour, Tylenol p.r.n. Continue current therapy. Dani Smith MD
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
[2018-09-01] MEDS: metroNIDAZOLE IV 500 mg/100 ml 500 MG/100 ML BAG IVPB SCH ×2 (05:11→13:37)
[2018-09-01 06:57] LABS: BASO # 0.02 K/mm3 (0.0-2.0); BASO % 0.4 % (0.0-3.0); EOS # 0.2 (0.0-0.7); EOS % 3.3 % (1.5-5.0); HEMOGLOBIN 10.4 g/dL (14.0-18.0); LYMPH # 1.1 (1.2-3.4); LYMPH % 21.3 % (22.0-35.0); MEAN CORPUSCULAR HEMOGLOBIN 28.7 pg (25.0-35.0); MEAN CORPUSCULAR HGB CONC 34.8 g/dl (31.0-37.0); MEAN PLATELET VOLUME 9.4 fl (7.0-11.0); MONO # 0.5 (0.1-0.6); RBC 3.63 10^6/uL (3.5-6.1); WHITE BLOOD COUNT 5.1 10^3/uL (4.5-11.0)
[2018-09-01 07:10] LABS: ALB/GLOB RATIO 0.9 (1.1-1.8); ALBUMIN 3.6 g/dL (3.0-4.8); ALT/SGPT 13 U/L (7-56); AST/SGOT 22 U/L (17-59); BLOOD UREA NITROGEN 13 mg/dL (7-21); CALCIUM 9.5 mg/dL (8.4-10.5); GFR NON-AFRICAN AMERICAN > 60; HDL CHOLESTEROL 30 mg/dL (29-60)
[2018-09-01 07:16] LABS: LDL CHOLESTEROL 64 mg/dL (0-129)
--- NOTE | 2018-09-01 07:56 | CP.PCM.PN ---
Subjective - Date & Time of Evaluation Date of Evaluation: 09/01/18 Time of Evaluation: 06:55 - Subjective Subjective: Awake, no distress Reason for consultation and follow up: Cardiac evaluation of hypotension and lightheadedness, admitted for diarrhea Seen and examined by me and Dr. Almanzar Objective - Vital Signs/Intake and Output Vital Signs (last 24 hours): Temp Pulse Resp BP Pulse Ox 98.6 F 76 20 125/77 96 08/31/18 00:01 09/01/18 05:35 08/31/18 00:01 08/31/18 00:01 08/31/18 00:01 Intake and Output: 09/01/18 09/01/18 06:59 18:59 Intake Total 240 Balance 240 - Medications Medications: Current Medications Acetaminophen (Tylenol 325mg Tab) 650 mg PO Q6H PRN PRN Reason: Pain, moderate (4-7) Last Admin: 09/01/18 05:15 Dose: 650 mg Divalproex Sodium (Depakote Er(Once Daily)) 500 mg PO HS [facility]; Protocol Last Admin: 08/31/18 21:18 Dose: 500 mg Fluticasone Propionate (Flonase) 1 actuation NS DAILY [facility] Last Admin: 08/31/18 10:09 Dose: 1 spray Metronidazole (Flagyl) 500 mg in 100 mls @ 100 mls/hr IVPB Q8 [facility]; Protocol Last Admin: 09/01/18 05:11 Dose: 100 mls/hr Ceftriaxone Sodium (Rocephin 1 Gram Ivpb) 1 gm in 100 mls @ 100 mls/hr IVPB DAILY [facility]; Protocol Last Admin: 08/31/18 10:10 Dose: 100 mls/hr Sodium Chloride (Sodium Chloride 0.9%) 1,000 mls @ 100 mls/hr IV .Q10H [facility] Last Admin: 08/31/18 21:21 Dose: 100 mls/hr Insulin Human Regular (Humulin R Med) 0 units SC ACHS [facility] Last Admin: 08/31/18 21:43 Dose: Not Given Lamotrigine (Lamictal) 200 mg PO HS [facility]; Protocol Last Admin: 08/31/18 21:18 Dose: 200 mg Metformin HCl (Glucophage) 500 mg PO BID [facility] Last Admin: 08/31/18 17:57 Dose: 500 mg Midodrine (Proamatine) 2.5 mg PO BID [facility] Last Admin: 08/31/18 17:59 Dose: 2.5 mg Lysine Hcl [L-Lysine ] 1,000 Mg (Home Med) 1,000 mg PO DAILY [facility] Last Admin: 08/31/18 11:15 Dose: Not Given Trazodone HCl (Desyrel) 150 mg PO HS [facility] Last Admin: 08/31/18 21:18 Dose: 150 mg - Labs Labs: 09/01/18 06:00 09/01/18 06:00 PT 12.0 SECONDS (9.4-12.5) 08/29/18 10:05 INR 1.06 08/29/18 10:05 APTT 31.7 Seconds (26.9-38.3) 08/29/18 10:05 - Constitutional Appears: Non-toxic, No Acute Distress - Head Exam Head Exam: NORMAL INSPECTION, NORMOCEPHALIC - Eye Exam Eye Exam: Normal appearance Pupil Exam: NORMAL ACCOMODATION - ENT Exam ENT Exam: Mucous Membranes Moist, Normal Exam - Respiratory Exam Respiratory Exam: Decreased Breath Sounds, Clear to Ausculation Bilateral, CRYS L BREATHING PATTERN - Cardiovascular Exam Cardiovascular Exam: REGULAR RHYTHM, +S1, +S2 - GI/Abdominal Exam GI & Abdominal Exam: Soft, Normal Bowel Sounds - Extremities Exam Extremities Exam: Full ROM, Normal Capillary Refill - Neurological Exam Neurological Exam: Alert, Awake, Oriented x3 - Psychiatric Exam Psychiatric exam: Normal Affect, Normal Mood - Skin Skin Exam: Dry, Normal Color, Warm Assessment and Plan - Assessment and Plan (Free Text) Assessment: A 53 year old male who came in to the ER due to lightheadedness x 2 days associated with nausea and watery, non-bloody diarrhea 4-5 times daily x 2 days. Hypotensive upon arrival to ER and cardiac consult was called. History of pneumonia,diabetes, hypertension, hyperlipidemia, arthritis, unsteady gait, diverticulitis, anxiety, bipolar disorder,depression, schizophrenia, current substance abuse and current smoker, severe arthritis of hip requiring surgery but did not follow up. Cardiac cath on 09/23/17 showed non obstructive coronary artery disease, LVEF 55-60%, diffusely diseased distal LAD 55%. Echo on 07/27/18 showed LVEF 60-65%, trivial AR, trace PVR. Dehydration secondary to recent diarrhea. Continue IV fluids. SBP improved. Will check Orthostatic vital signs. Negative for stool C-diff. Plan: No distress, Continue IV fluids for hydration Orthostatic vital signs SBP improved with IV hydration On Midorine 2.5 mg TID Continue IV antibiotics as ordered Continue current treatment Continue current medications Nutritional support Lifestyle modifications Smoking cessation Substance abuse cessation Will follow up Plan and treatment discussed with Dr. Almanzar
[2018-09-01] MEDS: Insulin Reg-MEDIUM-Coverage SC SCH ×3 (08:01→17:07)
--- NOTE | 2018-09-01 08:14 | PN ---
DATE: 08/30/2018 SUBJECTIVE: The patient still complained of diarrhea, some abdominal discomfort, is still dizzy. PHYSICAL EXAMINATION: VITAL SIGNS: The patient's temperature is 98.6, heart rate 83, blood pressure 116/70, respirations 16, saturation 98%. HEENT: Head and neck exam is normal. No JVD. No thyromegaly. CHEST: Clear bilateral. CARDIAC: First and second sound normal. ABDOMEN: Soft and nontender. EXTREMITIES: No edema. NEUROLOGIC: Normal. LABORATORY DATA: White count 6.8, hemoglobin 12, hematocrit 36, platelets 227. Chemistry, blood sugar 153 and his BUN 20, creatinine 1.2. IMPRESSION AND PLAN: 1. Acute infectious colitis, rule out Clostridium difficile colitis. The patient had a Clostridium difficile done which came back negative. Stool cultures are still pending. Continue intravenous Flagyl and Rocephin. We will follow up with the Gastroenterology. 2. The patient has dizziness, orthostatic hypotension. Continue IV fluids. We will see how the patient do with intravenous fluid and treatment of diarrhea. 3. Diabetes. Continue metformin b.i.d. and the insulin coverage. 4. History is depression, bipolar disorder. Continue Depakote 500 at bedtime and trazodone 150 at bedtime. Also, Lamictal 200 p.o. at bedtime. Seems stable. With these psychotropic drugs, he is doing okay. Plan is to continue current therapy. Followup clinically. Dani Smith MD
[2018-09-01 08:51] LABS: MEAN CELL VOLUME 88.4 fl (80.0-105.0)
[2018-09-01] MEDS ORDERED: Magnesium Sulfate 2 gm/50 ml 2 GM/50 ML BAG IVPB ONE (09:10)
[2018-09-01] MEDS: LYSINE HCL 1000 MG PO SCH (10:15)
--- NOTE | 2018-09-01 10:42 | CP.PCM.PN ---
<Anni Ascencio - Last Filed: 09/01/18 10:38> Subjective - Date & Time of Evaluation Date of Evaluation: 09/01/18 Time of Evaluation: 10:38 - Subjective Subjective: Anni Ascencio, PGY2, GI Progress Note for Dr Escamilla: Patient seen and examined at bedside. No acute events overnight. Patient reports 1 watery diarrheal episode within past 24 hours, patient also had a regular solid bowel movement this morning. Denies abdominal pain, nausea, vomiting, dizziness, fevers. Tolerating PO soft low fiber diet well. Objective - Vital Signs/Intake and Output Vital Signs (last 24 hours): Temp Pulse Resp BP Pulse Ox 98.6 F 76 20 125/77 96 08/31/18 00:01 09/01/18 05:35 08/31/18 00:01 08/31/18 00:01 08/31/18 00:01 Intake and Output: 09/01/18 09/01/18 06:59 18:59 Intake Total 240 Balance 240 - Medications Medications: Current Medications Acetaminophen (Tylenol 325mg Tab) 650 mg PO Q6H PRN PRN Reason: Pain, moderate (4-7) Last Admin: 09/01/18 05:15 Dose: 650 mg Divalproex Sodium (Depakote Er(Once Daily)) 500 mg PO HS [facility]; Protocol Last Admin: 08/31/18 21:18 Dose: 500 mg Fluticasone Propionate (Flonase) 1 actuation NS DAILY [facility] Last Admin: 08/31/18 10:09 Dose: 1 spray Metronidazole (Flagyl) 500 mg in 100 mls @ 100 mls/hr IVPB Q8 [facility]; Protocol Last Admin: 09/01/18 05:11 Dose: 100 mls/hr Ceftriaxone Sodium (Rocephin 1 Gram Ivpb) 1 gm in 100 mls @ 100 mls/hr IVPB DAILY [facility]; Protocol Last Admin: 08/31/18 10:10 Dose: 100 mls/hr Sodium Chloride (Sodium Chloride 0.9%) 1,000 mls @ 100 mls/hr IV .Q10H [facility] Last Admin: 08/31/18 21:21 Dose: 100 mls/hr Insulin Human Regular (Humulin R Med) 0 units SC ACHS [facility] Last Admin: 09/01/18 08:01 Dose: Not Given Lamotrigine (Lamictal) 200 mg PO HS [facility]; Protocol Last Admin: 08/31/18 21:18 Dose: 200 mg Magnesium Oxide (Mag-Ox) 400 mg PO BID [facility] Metformin HCl (Glucophage) 500 mg PO BID [facility] Last Admin: 09/01/18 10:11 Dose: 500 mg Midodrine (Proamatine) 2.5 mg PO BID [facility] Last Admin: 09/01/18 10:11 Dose: 2.5 mg Lysine Hcl [L-Lysine ] 1,000 Mg (Home Med) 1,000 mg PO DAILY [facility] Last Admin: 09/01/18 10:15 Dose: Not Given Trazodone HCl (Desyrel) 150 mg PO [facility] Last Admin: 08/31/18 21:18 Dose: 150 mg - Labs Labs: 09/01/18 06:00 09/01/18 06:00 PT 12.0 SECONDS (9.4-12.5) 08/29/18 10:05 INR 1.06 08/29/18 10:05 APTT 31.7 Seconds (26.9-38.3) 08/29/18 10:05 - Additional Findings Additional findings: - Constitutional Appears: Non-toxic, No Acute Distress - Head Exam Head Exam: ATRAUMATIC, NORMOCEPHALIC - Eye Exam Eye Exam: EOMI, PERRL. absent: Conjunctival injection, Nystagmus, Scleral icterus Pupil Exam: NORMAL ACCOMODATION, PERRL. absent: Irregular, Mydriatic - ENT Exam ENT Exam: Mucous Membranes Moist - Neck Exam Neck exam: Positive for: Full Rom - Respiratory Exam Respiratory Exam: Clear to Auscultation Bilateral, NORMAL BREATHING PATTERN. absent: Wheezes, Respiratory Distress - Cardiovascular Exam Cardiovascular Exam: RRR, +S1, +S2. absent: Systolic Murmur - GI/Abdominal Exam GI & Abdominal Exam: Normal Bowel Sounds, Soft, nontender. absent: Distended, Firm, Guarding, Mass, Rebound, Rigid - Extremities Exam Extremities exam: Positive for: normal inspection. Negative for: calf tenderness, pedal edema - Back Exam Back exam: NORMAL INSPECTION - Neurological Exam Neurological exam: Alert, Oriented x3 - Psychiatric Exam Psychiatric exam: Normal Affect, Normal Mood - Skin Skin Exam: Dry, Normal Color, Warm Assessment and Plan - Assessment and Plan (Free Text) Assessment: This is a 53 year old poor historian with PMH bipolar disorder, DM2, cocaine abuse, is here for lightheadedness, watery diarrhea: 1. Watery diarrhea, resolved 2/2 likely gastroenteritis, ruled out C diff colitis, less likely ischemic colitis 2. Dehydration 3. History of DM, bipolar disorder 4. Lightheadedness, resolved - Cdiff and ova/parasites negative. - awaiting stool culture results - continue with soft, low fiber diet - can discharge with two additional days of antibiotics: flagyl and cipro - s/p imodium x1 yesterday - continue management of diabetes and bipolar as per primary. Discussed case with Dr Escamilla. <Oni Escamilla V - Last Filed: 09/01/18 23:42> Objective - Vital Signs/Intake and Output Vital Signs (last 24 hours): Temp Pulse Resp BP Pulse Ox 98.6 F 73 20 125/77 96 08/31/18 00:01 09/01/18 10:00 08/31/18 00:01 08/31/18 00:01 08/31/18 00:01 - Labs Labs: 09/01/18 19:30 09/01/18 06:00 PT 12.0 SECONDS (9.4-12.5) 08/29/18 10:05 INR 1.06 08/29/18 10:05 APTT 31.7 Seconds (26.9-38.3) 08/29/18 10:05 Attending/Attestation - Attestation I have personally seen and examined this patient.: Yes I have fully participated in the care of the patient.: Yes I have reviewed all pertinent clinical information, including history, physical exam and plan: Yes Notes (Text): This patient was seen and evaluated with the medical records coder. This is an addendum to the GI progress report dictated by the resident.. The diarrhea has significantly improved. No diarrhea patient has formed stool Recommend elective colonoscopy Follow-up stool studies Discussed with the patient at length fully understood regarding outpatient GI evaluation 09/01/18 23:34
[2018-09-01 11:17] VITALS: PULSE 73
[2018-09-01] MEDS: Fluticasone Nasal 50 mcg/Spray NS SCH (11:32)
[2018-09-01] MEDS: cefTRIAXone 1 gm 1 GM/100 ML BAG IVPB SCH (11:33)
[2018-09-01] MEDS: Sodium Chloride 0.9% 1,000 ML IV SCH (11:39)
--- NOTE | 2018-09-01 14:14 | CP.PCM.PCO ---
Physician Communication Note - Physician Communication Note Physician Communication Note: Pt. orthostatic, with dizziness,IVF continued Midodrine inc,Sodium Bicarb Additional Comments - Additional Comments Additional Comments: Pt. seen and examined, still orthostatic, with dizziness, Midodrine increased to 5 mg bid, Na Bicarb 1300 bid added, IVF continued as per PCP. Had regular BM today, Flagyl,Rocephin 2 more days per GI. PT rec. [facility], accepted to TCU for PT, antibx, Dr. Smith made aware
[2018-09-01] MEDS ORDERED: Magnesium Oxide 400 mg Tab UD PO SCH (18:00)
[2018-09-01 19:53] LABS: HEMOGLOBIN 10.1 g/dL (14.0-18.0); MEAN CELL VOLUME 87.9 fl (80.0-105.0); MEAN PLATELET VOLUME 8.8 fl (7.0-11.0); RBC 3.48 10^6/uL (3.5-6.1); RED CELL DISTRIBUTION WIDTH 14.4 % (11.5-14.5); WHITE BLOOD COUNT 6.3 10^3/uL (4.5-11.0)
--- NOTE | 2018-09-03 00:29 | DS ---
HISTORY OF PRESENT ILLNESS: The patient was seen and evaluated. The patient seemed to be having orthostatic hypotension with symptoms of dizziness. The patient's midodrine was increased to 5 mg p.o. daily. Today, the patient still feels dizzy. The patient had evaluation with GI consult, Dr. Escamilla and Cardiology, Dr. Leyva for his postural hypotension, was given IV fluid, was given sodium chloride tablets to help these symptoms and also for his gastroenteritis and his symptoms were negative. His C. diff was negative; stool culture was negative. CT scan shows left-sided colitis, possibly infectious colitis, could be viral. However, his stool culture was negative and C. diff was negative. We will continue his IV antibiotics for two more days. Probably, the patient will benefit from TCU for continuation of therapy and also for monitoring of his symptoms of dizziness and unsteadiness. He has no other complaints. He feels okay. His blood sugar running is okay and his breathing seems normal. PHYSICAL EXAMINATION VITAL SIGNS: Temperature 98, heart rate is 83, and blood pressure is 130/70, still orthostatic. HEAD AND NECK: Normal. No JVD. No thyromegaly. CHEST: Clear bilateral. CARDIAC: First sound and second sound normal. No murmur, rub, or gallop. ABDOMEN: Soft, obese, and nontender. EXTREMITIES: No edema. NEUROLOGIC: Normal. LABORATORY DATA: Last laboratory; white count 6.3, hemoglobin 10.1, hematocrit 30.6, and platelets 182. Chemistry; sodium 140, potassium 4.6, chloride 103, bicarb 28, BUN 13, creatinine 1.1, blood sugar 163 and hemoglobin A1c 7.4, magnesium 1.3. IMPRESSION AND PLAN 1. Acute infectious colitis. Plan; continue antibiotic for now and followup with as outpatient. 2. Postural hypotension associated with dizziness and instability. Continue IV fluid. We will increase midodrine to 5 mg b.i.d. and add sodium chloride salts to improve his blood pressure. We will monitor his blood pressure reading. 3. The patient has diabetes, insulin dependent, stable. 4. The patient has severe right hip arthritis, stable. 5. The patient has bipolar disorders, is stable mentally, he has no symptoms. Continue Depakote 500 mg p.o. at bedtime. Continue trazodone, antidepressant 150 mg once a day. Also other medication he takes is Lamictal 200 mg p.o. at bedtime. The patient's current medications; IV fluid, Tylenol, switching to Vantin p.o. and insulin coverage, midodrine, magnesium IV was given plus magnesium oxide 400 mg b.i.d. would be given. Continue current therapy. 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 The patient will be discharged to Transitional Care Unit for rehabilitation. Monitor his symptoms. Dani Smith MD
== END 2018-09-01 19:32 | DRG 392 ==
LOC: ED 09:47 → ERH 12:35 → 3RSO 16:05 → OBSVTOIN 08-30 16:36
PROVIDERS: ADMIT Internal Medicine; ATTEND Internal Medicine
DX: A09 Infectious gastroenteritis and colitis, unspecified (principal); I95.1 Orthostatic hypotension; E86.0 Dehydration; I25.10 Atherosclerotic heart disease of native coronary artery without angina pectoris; F31.9 Bipolar disorder, unspecified; F20.9 Schizophrenia, unspecified; E11.9 Type 2 diabetes mellitus without complications; F14.10 Cocaine abuse, uncomplicated; E78.5 Hyperlipidemia, unspecified; I10 Essential (primary) hypertension; F10.10 Alcohol abuse, uncomplicated; M54.9 Dorsalgia, unspecified; G89.29 Other chronic pain; F17.290 Nicotine dependence, other tobacco product, uncomplicated; R26.81 Unsteadiness on feet; M16.10 Unilateral primary osteoarthritis, unspecified hip; Z87.01 Personal history of pneumonia (recurrent); Z87.442 Personal history of urinary calculi

== ENCOUNTER 2018-09-01 19:32 | Inpatient (IN) | payer OTHER, BC ==
[2018-09-01 20:10] VITALS: BMI 31.6
[2018-09-01] MEDS: Divalproex 500 mg ER (ONCE DAILY formulation) PO SCH (21:48)
[2018-09-01] MEDS: Insulin Reg-MEDIUM-Coverage SC SCH (21:51)
[2018-09-01] MEDS: Sodium Chloride 0.9% 1,000 ML IV SCH (21:52)
[2018-09-02] MEDS ORDERED: cefTRIAXone 1 gm 1 GM/100 ML BAG IVPB SCH (06:00)
[2018-09-02] MEDS: Insulin Reg-MEDIUM-Coverage SC SCH ×4 (06:45→21:36)
[2018-09-02] MEDS: Sodium Chloride 0.9% 1,000 ML IV SCH (06:46)
[2018-09-02] MEDS ORDERED: Home Med 1 UNIT PO SCH (10:00)
[2018-09-02] MEDS: LYSINE HCL 1000 MG PO SCH (10:06)
[2018-09-02] MEDS: Magnesium Oxide 400 mg Tab UD PO SCH ×2 (10:07→17:16)
[2018-09-02] MEDS: Fluticasone Nasal 50 mcg/Spray NS SCH (13:48)
[2018-09-02] MEDS: Cefpodoxime (Vantin) 200 mg Tab PO SCH (17:16)
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
[2018-09-02] MEDS: Divalproex 500 mg ER (ONCE DAILY formulation) PO SCH (22:22)
[2018-09-03] MEDS: Cefpodoxime (Vantin) 200 mg Tab PO SCH ×2 (06:20→17:56)
[2018-09-03] MEDS: Insulin Reg-MEDIUM-Coverage SC SCH ×4 (06:30→21:49)
[2018-09-03] MEDS: Magnesium Oxide 400 mg Tab UD PO SCH ×2 (09:57→17:57)
[2018-09-03] MEDS: Fluticasone Nasal 50 mcg/Spray NS SCH (09:58)
[2018-09-03] MEDS: LYSINE HCL 1000 MG PO SCH (10:52)
[2018-09-03] MEDS: Divalproex 500 mg ER (ONCE DAILY formulation) PO SCH (21:48)
--- NOTE | 2018-09-04 00:33 | PN ---
DATE: 09/03/2018 SUBJECTIVE: The patient seems comfortable. Diarrhea is less. He seems like asymptomatic, although his blood pressure dropped earlier, but he denies feeling dizziness. There is no chest pain. No shortness of breath and no other complaints. PHYSICAL EXAMINATION: VITAL SIGNS: Temperature 98.5, heart rate 69, blood pressure 132/79 lying in bed flat and on standing his blood pressure 85/56, respiration 18, and saturation 98% on room air. HEAD AND NECK: Normal. No murmur, rub, or gallop. ABDOMEN: Soft and nontender. EXTREMITIES: No edema. NEUROLOGIC: Normal. LABORATORY DATA: Blood sugar running 150 and 100. IMPRESSION: 1. Acute gastroenteritis, resolved. Continue Vantin. 2. Orthostatic hypotension. The patient refused IV fluids. We will continue sodium bicarb 1500 mg twice a day and we are going to increase his midodrine to 5 mg t.i.d. 3. The patient has history of psychosis. We will continue his Risperdal plus Lexapro at bedtime plus the Depakote and we will see how he doing, seems mentally stable. Psychiatric scott is stable in mood. 4. The patient also has diabetes. Continue insulin coverage. PLAN: Continue current medications; Depakote 500 mg at bedtime, trazodone 150 mg at bedtime, Flonase, metformin b.i.d., insulin coverage low algorithm, Lamictal 200 mg at bedtime, Lexapro 20 mg p.o. daily, magnesium 400 mg b.i.d., midodrine 5 mg t.i.d., Risperdal is 2 mg at bedtime, Vantin, Tylenol, and sodium bicarb. Dani Smith MD
[2018-09-04] MEDS: Cefpodoxime (Vantin) 200 mg Tab PO SCH ×2 (05:46→17:34)
[2018-09-04] MEDS: Insulin Reg-MEDIUM-Coverage SC SCH ×4 (07:25→22:15)
[2018-09-04 08:14] LABS: HEMOGLOBIN 11.8 g/dL (14.0-18.0); MEAN CELL VOLUME 88.8 fl (80.0-105.0); MEAN CORPUSCULAR HEMOGLOBIN 29.5 pg (25.0-35.0); MEAN CORPUSCULAR HGB CONC 33.2 g/dl (31.0-37.0); MEAN PLATELET VOLUME 9.3 fl (7.0-11.0); RED CELL DISTRIBUTION WIDTH 14.2 % (11.5-14.5); WHITE BLOOD COUNT 5.1 10^3/uL (4.5-11.0)
[2018-09-04] MEDS: LYSINE HCL 1000 MG PO SCH (10:15)
[2018-09-04] MEDS: Magnesium Oxide 400 mg Tab UD PO SCH ×2 (10:15→17:33)
[2018-09-04] MEDS: Fluticasone Nasal 50 mcg/Spray NS SCH (10:17)
[2018-09-04 16:20] VITALS: BP 142/89; PULSE 77; RESP 18; TEMP 98.4; O2SAT 97
[2018-09-04] MEDS: Divalproex 500 mg ER (ONCE DAILY formulation) PO SCH (21:26)
[2018-09-05] MEDS: Cefpodoxime (Vantin) 200 mg Tab PO SCH (05:27)
[2018-09-05] MEDS: Insulin Reg-MEDIUM-Coverage SC SCH ×2 (07:01→11:59)
--- NOTE | 2018-09-05 09:08 | PN ---
DATE: 09/04/2018 SUBJECTIVE: This patient was seen and evaluated earlier. The patient remains afebrile. PHYSICAL EXAMINATION: VITAL SIGNS: Stable. HEENT: Atraumatic and anicteric. NECK: Supple. HEART: S1, S2, regular. LUNGS: Bilateral air entry present. LABORATORY DATA: Improving. IMPRESSION: This 53-year-old male vomiting, cough ____ colonoscopy. The patient's other comorbidities include diabetes mellitus, anxiety, depression, various other psychiatric problems. We would recommend elective colonoscopic evaluation. I did explain to the patient, who understood fully. Oni Escamilla MD
--- NOTE | 2018-09-05 09:20 | HP ---
DATE OF EXAM: 09/02/2018 The patient came into Transitional Care Unit because of unsteady gait and feeling weak and has history of recurrent syncope. HISTORY OF PRESENT ILLNESS: The patient initially admitted to the hospital because of diarrhea associated with lightheadedness and dizziness and unsteadiness. He was treated on medical floor with IV fluids and was given midodrine for his hypotension, which was orthostatic. The patient continued on that, however, he had the same problem, his diarrhea was less frequent but still there. He was admitted to TCU for continuation of therapy, IV fluid and physical therapy and management of orthostatic hypotension. He has no fever. No nausea. No vomiting. No rectal bleeding. No other complaints. PAST MEDICAL HISTORY: Diabetes type 2, he does have bipolar disorders on mood stabilizing drugs, he also has history of recent admission with multifocal pneumonia and a positive blood culture was treated with IV antibiotics. He does have history of drug use disorder using cocaine. The patient also has history of diabetes on p.o. pills. He does have severe right hip osteoarthritis. MEDICATIONS AT HOME: He used trazodone 150 mg at bedtime, Risperdal 2 mg p.o. at bedtime, metformin 500 mg p.o. b.i.d, Lamictal 200 mg at bedtime, Singulair, magnesium 400 mg b.i.d., Flonase p.r.n., Lexapro 20 mg p.o. at bedtime, Depakote 500 mg at bedtime, and Tylenol p.r.n. ALLERGIES: HE IS ALLERGIC TO IBUPROFEN AND BENADRYL, DIPHENHYDRAMINE. SOCIAL HISTORY: He does smoke cigarettes, but no drinking. He does use cocaine. He is , no children. He is disabled. REVIEW OF SYSTEMS: As in present illness. PHYSICAL EXAMINATION VITAL SIGNS: Temperature 98, heart rate 70, blood pressure is 145/91 and sometimes dropped to 100/81. HEAD AND NECK: Normal. No JVD. No thyromegaly. CHEST: Clear bilaterally. CARDIAC: First sound and second sound normal. No murmur, rub, gallop. ABDOMEN: Soft, obese, nontender. EXTREMITIES: No edema. NEUROLOGIC: Normal. The patient still have orthostatic. LABORATORY DATA: Blood sugar running 100 to 170. IMPRESSION AND PLAN: 1. Generalized weakness, unsteadiness. Continue IV fluid. We will add sodium bicarbonate twice a day and midodrine 5 mg b.i.d. 2. Bipolar disorder. Continue his antipsychotic therapy. He will resume his medications that he was taking at home and will follow on that. 3. Chronic obstructive pulmonary disease. Continue inhaled bronchodilators. 4. Diabetes. Continue sugar pills and monitor his sugar with sliding scale and insulin coverage. 5. The patient also has acute gastroenteritis. Continue IV antibiotic, which we switched to p.o. Vantin. We will follow up clinically. Dani Smith MD
[2018-09-05] MEDS: LYSINE HCL 1000 MG PO SCH (10:10)
[2018-09-05] MEDS: Fluticasone Nasal 50 mcg/Spray NS SCH (10:10)
[2018-09-05] MEDS: Magnesium Oxide 400 mg Tab UD PO SCH (10:11)
--- NOTE | 2018-09-05 13:48 | PN ---
DATE: 09/05/2018 LOCATION: The patient is in room 322, bed 1. REASON FOR CONSULTATION AND FOLLOWUP: Orthostatic hypotension, lightheadedness, dizziness, and deconditioning. The patient was seen on medical floor now transferred to Transition Care Unit. SUBJECTIVE: The patient is lying flat in bed without chest pain, shortness of breath or palpitation. His dizziness has improved. The patient denies any palpitations. The patient known to have diabetes, hypertension, hyperlipidemia. PHYSICAL EXAMINATION: VITAL SIGNS: Blood pressure 142/89, respirations 18, pulse 77, and temperature 98.4. HEENT: Head is normocephalic. Eyes; pupils normal. Conjunctivae are slightly pale. NECK: JVP low. Carotids equal. THORAX: AP diameter normal. LUNGS: Clear. CARDIOVASCULAR: S1 and S2. ABDOMEN: Soft. No tenderness. No organomegaly. Bowel sounds are normal. EXTREMITIES: No clubbing. No cyanosis. LABORATORY DATA: WBC 5.1, hemoglobin 11.8, hematocrit 35.5, and platelets 215. Random sugar 164. Other labs were done on medical floor and they were reported in our progress notes medical floor. The patient had an echo done on 07/28/2018 and was reported in our consultation of done on 09/02/2018. The patient has catheterization on 09/23/2017 that revealed nonobstructive coronary artery disease limited to distal LAD 55% diffused, no flow limiting, obstruction was seen, preserved LV function 55%-60% LV ejection fraction, the EDP was 6 to 8. 08/03/2017 revealed normal sinus rhythm to sinus tachycardia. No arrhythmia. Minimal heart rate was 74 and maximum was 121. DIAGNOSES: Orthostatic hypotension, lightheadedness, dizziness which has improved, diabetes mellitus, hypertension, hyperlipidemia, history of tobacco, alcohol and drug abuse in the past, left anterior descending distally 55% block on the catheterization, deconditioning. The patient has history of tobacco abuse, substance abuse, alcohol abuse. PLAN: The patient is on Desyrel 150 mg at bedtime, metformin 500 mg b.i.d., Lamictal 200 mg p.o. at bedtime, Lexapro 20 mg p.o. daily, magnesium 400 mg twice a day, midodrine 5 mg p.o. three times a day, Risperdal 2 mg p.o. daily, sodium bicarbonate 1300 mg p.o. every 12 hours, Vantin 200 mg p.o. twice a day. We will continue present therapy and recheck orthostatic blood pressures. Continue physical therapy in the meantime. Thomas Almanzar MD
--- NOTE | 2018-09-07 03:15 | DS ---
HISTORY OF PRESENT ILLNESS: The patient was admitted to rehabilitation unit for continuation of medical therapy for gastroenteritis, postural hypertension, and dizziness; given IV fluid, given midodrine and sodium bicarbonate. The patient was improved, antibiotics stopped, IV fluids stopped, he seems doing well with the medications, titrated to the symptom free, and the patient was discharged home. He is getting physical therapy, gets stabilizations, seems doing okay, and feels comfortable to go home. There is no . PHYSICAL EXAMINATION: On discharge; VITAL SIGNS: Temperature 98, heart rate 77, blood pressure 142/89, and respiration 18. HEAD AND NECK: Normal. No JVD. No thyromegaly. CHEST: Clear bilaterally. CARDIAC: First sound and second sound normal. No murmur, rub, or gallop. ABDOMEN: Soft and nontender. EXTREMITIES: No edema. NEUROLOGIC: Normal. LABORATORY DATA: White count 5.1, hemoglobin 11.8, hematocrit 35.5, and platelets 215. Chemistry is noted for blood sugar for 170 to 200. IMPRESSION: 1. Acute gastroenteritis, resolved. Finished complete antibiotics. 2. Postural hypertension, improved. 3. Diabetes. 4. Hip arthritis. 5. Bipolar disorder. PLAN: The patient to be discharged home and follow up in the office within a week. The patient was getting trazodone 150 mg at bedtime, Risperdal 2 mg at bedtime, metformin 500 mg b.i.d., Lamictal 200 mg at bedtime, sodium bicarbonate 1300 mg b.i.d., Singulair 10 mg, midodrine 5 mg b.i.d., and also magnesium 400 mg twice a day, Flonase nasal spray, Lexapro 20 mg at bedtime, Depakote 500 mg at bedtime, and Tylenol. Follow up in a week. Dani Smith MD
== END 2018-09-05 14:44 | disposition home or self-care (01) | DRG 312 ==
LOC: TRCU 19:32
PROVIDERS: ADMIT Internal Medicine; ATTEND Internal Medicine
PROC: F07Z9ZZ Gait Training/Functional Ambulation Treatment (ICD-10-PCS; principal; 2018-09-02)
PROC: F07M6ZZ Therapeutic Exercise Treatment of Musculoskeletal System - Whole Body (ICD-10-PCS; 2018-09-02)
DX: I95.1 Orthostatic hypotension (principal); I25.10 Atherosclerotic heart disease of native coronary artery without angina pectoris; J44.9 Chronic obstructive pulmonary disease, unspecified; I10 Essential (primary) hypertension; E78.5 Hyperlipidemia, unspecified; E11.9 Type 2 diabetes mellitus without complications; F10.10 Alcohol abuse, uncomplicated; F17.210 Nicotine dependence, cigarettes, uncomplicated; F31.9 Bipolar disorder, unspecified; F41.9 Anxiety disorder, unspecified; K52.9 Noninfective gastroenteritis and colitis, unspecified; M16.11 Unilateral primary osteoarthritis, right hip; Z79.84 Long term (current) use of oral hypoglycemic drugs; Z79.899 Other long term (current) drug therapy